=== PATIENT | female | born 1990 | race Hispanic/Latino ===

== ENCOUNTER 2017-10-24 21:31 | Emergency (ER) | payer OTHER, SELFPAY ==
[2017-10-24] MEDS ORDERED: CLINDAMYCIN HCL 150 MG CAP ONE (23:26)
[2017-10-24] MEDS ORDERED: PEN G BENZ LA 2.4 MU/4 ML SYRINGE IM ONE (23:26)
--- NOTE | 2017-10-24 23:27 | EDPHYS ---
Physician Documentation [facility] Name: Suellen Rivera Age: 27 yrs Sex: Female : 1990 Arrival Date: 10/24/2017 Time: 21:32 Bed 28 Private MD: ED Physician Igor Joseph HPI: 10/24 23:21 This 27 yrs old Female presents to ER via Ambulatory with complaints of Fever. radha 23:21 The patient reports fever, that was measured at 100 degrees Fahrenheit. Onset: The radha symptoms/episode began/occurred 3 day(s) ago. Modifying factors: there are no obvious modifying factors. Associated signs and symptoms: Pertinent positives: runny nose, sore throat, swelling. Severity of symptoms: At their worst the symptoms were moderate in the emergency department the symptoms are unchanged. 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 - Social history:: Smoking status: Patient/guardian denies using tobacco. - Ebola Screening: : Patient denies travel to an Ebola-affected area in the 21 days before illness onset. - Family history:: not pertinent. ROS: 23:21 Constitutional: Negative for fever, chills, and weight loss, Eyes: Negative for injury, radha pain, redness, and discharge, Neck: Negative for injury, pain, and swelling, Cardiovascular: Negative for chest pain, palpitations, and edema, Respiratory: Negative for shortness of breath, cough, wheezing, and pleuritic chest pain, Abdomen/GI: Negative for abdominal pain, nausea, vomiting, diarrhea, and constipation, Back: Negative for injury and pain, : Negative for injury, bleeding, discharge, and swelling, MS/Extremity: Negative for injury and deformity, Skin: Negative for injury, rash, and discoloration, Neuro: Negative for headache, weakness, numbness, tingling, and seizure, Psych: Negative for depression, anxiety, suicide ideation, homicidal ideation, and hallucinations, Allergy/Immunology: Negative for hives, rash, and allergies, Endocrine: Negative for neck swelling, polydipsia, polyuria, polyphagia, and marked weight changes, Hematologic/Lymphatic: Negative for swollen nodes, abnormal bleeding, and unusual bruising. 23:21 ENT: Positive for difficulty swallowing, sore throat. 23:21 Neck: Positive for swollen nodes, Negative for injury or acute deformity, mass, pain with movement, pain at rest, rash, stiffness, swelling. Exam: 23:23 Head/Face: Normocephalic, atraumatic. Eyes: Pupils equal round and reactive to light, radha extra-ocular motions intact. Lids and lashes normal. Conjunctiva and sclera are non-icteric and not injected. Cornea within normal limits. Periorbital areas with no swelling, redness, or edema. Neck: Trachea midline, no thyromegaly or masses palpated, and no cervical lymphadenopathy. Supple, full range of motion without nuchal rigidity, or vertebral point tenderness. No Meningismus. Chest/axilla: Normal chest wall appearance and motion. Nontender with no deformity. No lesions are appreciated. Cardiovascular: Regular rate and rhythm with a normal S1 and S2. No gallops, murmurs, or rubs. Normal PMI, no JVD. No pulse deficits. Respiratory: Lungs have equal breath sounds bilaterally, clear to auscultation and percussion. No rales, rhonchi or wheezes noted. No increased work of breathing, no retractions or nasal flaring. Abdomen/GI: Soft, non-tender, with normal bowel sounds. No distension or tympany. No guarding or rebound. No evidence of tenderness throughout. Back: No spinal tenderness. No costovertebral tenderness. Full range of motion. Pelvic Exam: Normal external genitalia. Speculum exam with closed cervical os, no discharge or bleeding noted. Bimanual exam with normal adnexa, no adnexal or cervical motion tenderness. Normal uterus. Female : Normal external genitalia. Skin: Warm, dry with normal turgor. Normal color with no rashes, no lesions, and no evidence of cellulitis. MS/ Extremity: Pulses equal, no cyanosis. Neurovascular intact. Full, normal range of motion. Neuro: Awake and alert, GCS 15, oriented to person, place, time, and situation. Cranial nerves II-XII grossly intact. Motor strength 5/5 in all extremities. Sensory grossly intact. Cerebellar exam normal. Normal gait. Psych: Awake, alert, with orientation to person, place and time. Behavior, mood, and affect are within normal limits. 23:23 Constitutional: The patient appears febrile. 23:23 ENT: Posterior pharynx: Tonsils: bilaterally enlarged, with erythema, Uvula: midline, edematous, erythema, swelling, that is mild, erythema, that is mild, that is moderate, exudate, that is mild, peritonsillar mass, is not appreciated. Vital Signs: 21:46 BP 117 / 82; Pulse 119; Resp 20; Temp 98.4(O); Pulse Ox 98% on R/A; Weight 111.13 kg aj1 (R); Height 5 ft. 4 in. (162.56 cm) (R); Pain 0/10; 23:31 BP 119 / 81; Pulse 98; Resp 16; Pulse Ox 100% on R/A; tl3 21:46 Body Mass Index 42.05 (111.13 kg, 162.56 cm) 1 MDM: 21:56 Patient medically screened. [facility] 23:27 Data reviewed: vital signs, nurses notes, lab test result(s). [facility] 10/24 22:06 Order name: Strep; Complete Time: 23:20 3 10/24 23:21 Order name: PO challenge; Complete Time: 23:21 [facility] Administered Medications: 23:30 Drug: Clindamycin 300 mg Route: PO; 3 23:48 Follow up: Response: No adverse reaction [facility] 23:31 Drug: Bicillin L-A 1.8 million units Route: IM; Site: left vastus lateralis; 3 23:48 Follow up: Response: No adverse reaction [facility] Disposition: 10/24/17 23:26 Discharged to Home. Impression: Fever, unspecified, Acute tonsillitis, Streptococcal tonsillitis. - Condition is Stable. - Discharge Instructions: Fever, Adult, Tonsillitis, Tonsillitis, [id number]. - Prescriptions for Clindamycin HCl 300 mg Oral Capsule - take 1 capsule by ORAL route every 6 hours for 7 days; 28 capsule. - Medication Reconciliation Form, Thank You Letter, Antibiotic Education, Prescription Opioid Use form. - Follow up: Private Physician; When: 2 - 3 days; Reason: Recheck today's complaints, Continuance of care, Re-evaluation by your physician. - Problem is new. - Symptoms have improved. Signatures: Dispatcher [employer] Avelina Watts RN RN aj1 Igor oJseph MD MD cha Lowrey, Tammy, RN RN tl3 Corrections: (The following items were deleted from the chart) 23:49 23:26 10/24/2017 23:26 Discharged to Home. Impression: Fever, unspecified; Acute tl3 tonsillitis; Streptococcal tonsillitis. Condition is Stable. Forms are Medication Reconciliation Form, Thank You Letter, Antibiotic Education, Prescription Opioid Use. Follow up: Private Physician; When: 2 - 3 days; Reason: Recheck today's complaints, Continuance of care, Re-evaluation by your physician. Problem is new. Symptoms have improved. radha
--- NOTE | 2017-10-24 23:27 | ER ---
Nurse's Notes [facility] Name: Suellen Rivera Age: 27 yrs Sex: Female : 1990 Arrival Date: 10/24/2017 Time: 21:32 Bed 28 Private MD: Diagnosis: Fever, unspecified;Acute tonsillitis;Streptococcal tonsillitis Presentation: 10/24 21:44 Presenting complaint: Patient states: sore throat, chills, fever, nausea since aj1 Saturday. Denies vomiting, diarrhea. Transition of care: patient was not received from another setting of care. Onset of symptoms was October 23, 2017. Risk Assessment: Do you want to hurt yourself or someone else? Patient reports no desire to harm self or others. Initial Sepsis Screen: Does the patient meet any 2 criteria? No. Patient's initial sepsis screen is negative. Does the patient have a suspected source of infection? No. Patient's initial sepsis screen is negative. Care prior to arrival: None. 21:44 Method Of Arrival: Ambulatory [facility] 21:44 Acuity: VIMAL 4 aj1 Triage Assessment: 21:46 General: Appears in no apparent distress. uncomfortable, Behavior is calm, cooperative, aj1 appropriate for age. Pain: Denies pain. EENT: Reports nasal congestion nasal discharge sore throat. 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 - Social history:: Smoking status: Patient/guardian denies using tobacco. - Ebola Screening: : Patient denies travel to an Ebola-affected area in the 21 days before illness onset. - Family history:: not pertinent. Screenin:00 Abuse screen: Denies threats or abuse. Nutritional screening: No deficits noted. tl3 Tuberculosis screening: No symptoms or risk factors identified. Fall Risk None identified. Assessment: 22:00 General: Appears in no apparent distress. uncomfortable, well groomed, well developed, tl3 well nourished, Behavior is calm, cooperative, appropriate for age. Pain: Complains of pain in sore throat. Neuro: No deficits noted. Level of Consciousness is awake, alert, obeys commands, Oriented to person, place, time, situation, Appropriate for age. Cardiovascular: Heart tones S1 S2 present Patient's skin is warm and dry. Respiratory: Airway is patent Respiratory effort is even, unlabored, Respiratory pattern is regular, symmetrical. GI: No signs and/or symptoms were reported involving the gastrointestinal system. : No signs and/or symptoms were reported regarding the genitourinary system. EENT: No signs and/or symptoms were reported regarding the EENT system. EENT: Reports difficulty swallowing since two days pain in throat when swallowing. Derm: No signs and/or symptoms reported regarding the dermatologic system. Musculoskeletal: No signs and/or symptoms reported regarding the musculoskeletal system. 23:31 Reassessment: Patient appears in no apparent distress at this time. No changes from tl3 previously documented assessment. Patient and/or family updated on plan of care and expected duration. Pain level reassessed. Patient is alert, oriented x 3, equal unlabored respirations, skin warm/dry/pink. pt awaiting shot time for discharge. Vital Signs: 21:46 BP 117 / 82; Pulse 119; Resp 20; Temp 98.4(O); Pulse Ox 98% on R/A; Weight 111.13 kg aj1 (R); Height 5 ft. 4 in. (162.56 cm) (R); Pain 0/10; 23:31 BP 119 / 81; Pulse 98; Resp 16; Pulse Ox 100% on R/A; tl3 21:46 Body Mass Index 42.05 (111.13 kg, 162.56 cm) aj1 ED Course: 21:32 Patient arrived in ED. am2 21:45 Triage completed. aj1 21:46 Arm band placed on. aj1 21:56 Igor Joseph MD is Attending Physician. radha 22:00 Patient has correct armband on for positive identification. Bed in low position. Call tl3 light in reach. Side rails up X 1. Adult w/ patient. 22:00 No provider procedures requiring assistance completed. Patient did not have IV access tl3 during this emergency room visit. 22:06 Hazel Pérez, RN is Primary Nurse. tl3 Administered Medications: 23:30 Drug: Clindamycin 300 mg Route: PO; tl3 23:48 Follow up: Response: No adverse reaction tl3 23:31 Drug: Bicillin L-A 1.8 million units Route: IM; Site: left vastus lateralis; tl3 23:48 Follow up: Response: No adverse reaction tl3 Outcome: 23:26 Discharge ordered by . radha 23:48 Discharged to home ambulatory. tl3 23:48 Condition: good 23:48 Discharge instructions given to patient, Instructed on discharge instructions, follow up and referral plans. medication usage, Demonstrated understanding of instructions, follow-up care, medications, Prescriptions given X 1. 23:49 Patient left the ED. tl3 Signatures: Avelina Zavala, RN RN aj1 Igor Joseph MD MD cha Moreno, Amanda am2 Lowrey, Tammy, HENRY RN tl3
[2017-10-25 00:36] VITALS: TEMP 98.4
[2017-10-25 00:39] VITALS: BP 119/81; O2SAT 100
== END 2017-10-24 23:49 | disposition home or self-care (01) ==
LOC: ER 21:31
DX: J03.00 Acute streptococcal tonsillitis, unspecified (principal)
CPT/HCPCS: 87081; 96372; 99283; J0561

== ENCOUNTER 2017-11-13 07:20 | Emergency (ER) | payer OTHER, SELFPAY ==
[2017-11-13 08:09] LABS: Absolute Lymphocytes (CBC) 3.7 K/uL (0.7-4.9); Absolute Monocytes 0.8 K/uL (0.1-1.3); Absolute Neutrophil 9.5 K/uL (1.8-8.0); Basophils % 0.3 % (0-1.3); Eosinophils % 0.2 % (0-4.4); Hematocrit 38.9 % (36.0-45.0); Lymphocytes % 26.4 % (15.3-44.8); MCH 27.2 pg (27.0-35.0); MCV 86.8 fL (80-100); MPV 9.2 fL (7.6-11.3); Monocytes % 5.8 % (3.3-12.3); RBC Red Blood Cell Count 4.49 M/uL (3.86-4.86)
[2017-11-13 08:11] LABS: Urine Bacteria <20 /HPF (<20); Urine Culture Reflex Order NOT NEEDED; Urine Mucus 1+ /HPF (NONE SEEN); Urine RBC <5 /HPF (NONE SEEN)
[2017-11-13 08:41] LABS: BUN Blood Urea Nitrogen 8 mg/dL (7-18); Bicarbonate 25 mmol/L (21-32); Glucose Level 110 mg/dL (74-106); HCG, Quantitative 2963 mIU/mL (1-3); Potassium 3.7 mmol/L (3.5-5.1); Sodium Level 137 mmol/L (136-145)
[2017-11-13 09:37] LABS: Urine Blood NEGATIVE (NEG); Urine Glucose NEGATIVE (NEG); Urine Protein NEGATIVE (NEG); Urine Specific Gravity 1.025 (1.005-1.030); Urine pH 5.5 (5.0-7.0)
--- NOTE | 2017-11-13 10:06 | EDPHYS ---
Physician Documentation [facility] Name: Suellen Rivera Age: 27 yrs Sex: Female : 1990 Arrival Date: 11/13/2017 Time: 07:22 Bed 15 Private MD: None, None ED Physician Duane Diaz HPI: 11/13 07:36 This 27 yrs old Female presents to ER via Ambulatory with complaints of rn Abdominal Pain - 6wk . 07:36 The patient presents to the emergency department with abdominal pain, of the suprapubic rn area. The estimated gestational age is 6 weeks. course: care: none, Leakage of Fluid: none appreciated, Ultrasound: the patient has not had an ultrasound, Risk/complications:. Previous pregnancies: in previous pregnancies patient has had. Associated signs and symptoms: Pertinent positives: abdominal pain, frequency, Pertinent negatives: fever, vaginal bleeding, vaginal discharge. The patient has experienced similar episodes in the past. Reports LMP 6-7 weeks ago, presents with lower abd pain, sharp, intermittent, + increased urinary frequency, no trauma, no bleeding/discharge, has had 2 previous miscarriages so wanted to be safe. . 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 - Social history:: Smoking status: Patient/guardian denies using tobacco. - Ebola Screening: : Patient denies exposure to infectious person Patient denies travel to an Ebola-affected area in the 21 days before illness onset. - Family history:: not pertinent. - Hospitalizations: : No recent hospitalization is reported. ROS: 07:36 Constitutional: Negative for fever, chills, and weight loss, Eyes: Negative for injury, rn pain, redness, and discharge, Neck: Negative for injury, pain, and swelling, Cardiovascular: Negative for chest pain, palpitations, and edema, Respiratory: Negative for shortness of breath, cough, wheezing, and pleuritic chest pain, Abdomen/GI: + lower abd pain Back: Negative for injury and pain, : Negative for injury, bleeding, discharge, and swelling, MS/Extremity: Negative for injury and deformity, Skin: Negative for injury, rash, and discoloration, Neuro: Negative for headache, weakness, numbness, tingling, and seizure. Exam: 07:36 Constitutional: This is a well developed, well nourished patient who is awake, alert, rn and in no acute distress. Head/Face: Normocephalic, atraumatic. Eyes: Pupils equal round and reactive to light, extra-ocular motions intact. Lids and lashes normal. Conjunctiva and sclera are non-icteric and not injected. Cornea within normal limits. Periorbital areas with no swelling, redness, or edema. ENT: MMM Abdomen/GI: Soft, non-tender. No distension or tympany. No guarding or rebound. Mild suprapubic tenderness. Skin: Warm, dry with normal turgor. Normal color with no rashes, no lesions, and no evidence of cellulitis. MS/ Extremity: Pulses equal, no cyanosis. Neurovascular intact. Full, normal range of motion. Equal circumference. Neuro: Awake and alert, GCS 15, oriented to person, place, time, and situation.Motor strength 5/5 in all extremities. Sensory grossly intact. Cerebellar exam normal. Normal gait. Vital Signs: 07:35 BP 129 / 86; Pulse 88; Resp 14; Temp 98.3(O); Pulse Ox 100% on R/A; Weight 111.13 kg; ss Height 5 ft. 4 in. (162.56 cm); Pain 8/10; 09:00 BP 118 / 78; Pulse 84; Resp 18; Pulse Ox 99% on R/A; ph 10:00 BP 122 / 76; Pulse 85; Resp 18; Temp 98.0; Pulse Ox 99% on R/A; ph 07:35 Body Mass Index 42.05 (111.13 kg, 162.56 cm) ss MDM: 07:26 Patient medically screened. rn 10:03 ED course: Consulted with Dr. Colon \T\ 1002, states difficult to tell at this point if rn ecotpic vs viable given presentation and data, does not recommend methotrexate or surgery, recommends f/u in 48 hours for repeat beta and to return if worsens. No peritoneal signs at this point. . 10:11 ED course: Pt states pain almost resolved. Has f/u appt with her private OB tomorrow. . rn 10:12 Differential diagnosis: ectopic . Data reviewed: vital signs, nurses notes, steel burner test result(s), radiologic studies, ultrasound, and as a result, I will discharge patient. Counseling: I had a detailed discussion with the patient and/or guardian regarding: the historical points, exam findings, and any diagnostic results supporting the discharge/admit diagnosis, lab results, radiology results, the need for outpatient follow up, to return to the emergency department if symptoms worsen or persist or if there are any questions or concerns that arise at home. Response to treatment: the patient's symptoms have markedly improved after treatment. 11/13 07:35 Order name: Quantitative Hcg; Complete Time: 08:46 rn 11/13 07:35 Order name: Abo/rh Typing; Complete Time: 08:21 rn 11/13 07:35 Order name: Basic Metabolic Panel; Complete Time: 08:46 rn 11/13 07:35 Order name: CBC with Diff; Complete Time: 08:21 rn 11/13 07:35 Order name: Urine Microscopic Only; Complete Time: 08:21 rn 11/13 07:38 Order name: Urine Dipstick--Ancillary (enter results); Complete Time: 09:54 em1 11/13 07:35 Order name: IV Saline Lock; Complete Time: 07:51 rn 11/13 07:35 Order name: Labs collected and sent; Complete Time: 07:51 rn 11/13 07:35 Order name: NPO; Complete Time: 07:53 rn 11/13 07:35 Order name: Urine Dipstick-Ancillary (obtain specimen); Complete Time: 07:39 rn 11/13 07:35 Order name: Urine Test (obtain specimen); Complete Time: 07:39 rn 11/13 07:35 Order name: US Transvaginal Ob; Complete Time: 10:19 rn 11/13 07:38 Order name: Urine --Ancillary (enter results); Complete Time: 09:54 em1 Administered Medications: No medications were administered Disposition: 11/13/17 10:05 Discharged to Home. Impression: Threatened , Abdominal and pelvic pain, Possible ectopic . - Condition is Stable. - Discharge Instructions: Ectopic , Threatened Miscarriage, Pelvic Rest. - Medication Reconciliation Form, Thank You Letter, Antibiotic Education, Prescription Opioid Use form. - Follow up: Private Physician; When: 48 Hours; Reason: Repeat Beta-HCG (48 Hours). - Problem is new. - Symptoms have improved. Signatures: Dispatcher [employer] EDMS Duane Diaz MD MD rn Martinez, Eric em1 Paty Figueroa RN RN ss Hall, Patricia, RN RN ph Corrections: (The following items were deleted from the chart) 07:38 07:38 Urine Dipstick-Ancillary ordered. em1 em1 07:39 07:38 Urine Test ordered. em1 em1 08:54 07:36 Constitutional: This is a well developed, well nourished patient who is awake, rn alert, and in no acute distress. Head/Face: Normocephalic, atraumatic. Eyes: Pupils equal round and reactive to light, extra-ocular motions intact. Lids and lashes normal. Conjunctiva and sclera are non-icteric and not injected. Cornea within normal limits. Periorbital areas with no swelling, redness, or edema. ENT: MMM Abdomen/GI: Soft, non-tender, with normal bowel sounds. No distension or tympany. No guarding or rebound. No evidence of tenderness throughout. Skin: Warm, dry with normal turgor. Normal color with no rashes, no lesions, and no evidence of cellulitis. MS/ Extremity: Pulses equal, no cyanosis. Neurovascular intact. Full, normal range of motion. Equal circumference. Neuro: Awake and alert, GCS 15, oriented to person, place, time, and situation.Motor strength 5/5 in all extremities. Sensory grossly intact. Cerebellar exam normal. Normal gait. rn 10:05 10:05 11/13/2017 10:05 Discharged to Home. Impression: Threatened ; Abdominal rn and pelvic pain. Condition is Stable. Forms are Medication Reconciliation Form, Thank You Letter, Antibiotic Education, Prescription Opioid Use. Follow up: Private Physician; When: 48 Hours; Reason: Repeat Beta-HCG (48 Hours). Problem is new. Symptoms have improved. rn 10:27 10:05 11/13/2017 10:05 Discharged to Home. Impression: Threatened ; Abdominal ph and pelvic pain; Possible ectopic . Condition is Stable. Forms are Medication Reconciliation Form, Thank You Letter, Antibiotic Education, Prescription Opioid Use. Follow up: Private Physician; When: 48 Hours; Reason: Repeat Beta-HCG (48 Hours). Problem is new. Symptoms have improved. rn
--- NOTE | 2017-11-13 10:06 | ER ---
Nurse's Notes [facility] Name: Suellen Rivera Age: 27 yrs Sex: Female : 1990 Arrival Date: 11/13/2017 Time: 07:22 Bed 15 Private MD: None, None Diagnosis: Threatened ;Abdominal and pelvic pain;Possible ectopic Presentation: 11/13 07:33 Presenting complaint: Patient states: sharp, lower abd pain that began at 0430 this morning. Pt reports she is approx 6-7 weeks . Denies vaginal bleeding. Transition of care: patient was not received from another setting of care. Onset of symptoms was November 13, 2017. Risk Assessment: Do you want to hurt yourself or someone else? Patient reports no desire to harm self or others. Initial Sepsis Screen: Does the patient meet any 2 criteria? No. Patient's initial sepsis screen is negative. Does the patient have a suspected source of infection? No. Patient's initial sepsis screen is negative. Care prior to arrival: None. 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 - Social history:: Smoking status: Patient/guardian denies using tobacco. - Ebola Screening: : Patient denies exposure to infectious person Patient denies travel to an Ebola-affected area in the 21 days before illness onset. - Family history:: not pertinent. - Hospitalizations: : No recent hospitalization is reported. Screenin:37 Abuse screen: Denies threats or abuse. Denies injuries from another. Nutritional ph screening: No deficits noted. Tuberculosis screening: No symptoms or risk factors identified. Fall Risk None identified. Assessment: 07:38 General: Appears in no apparent distress. uncomfortable, obese, well groomed, Behavior ph is calm, cooperative, appropriate for age. Pain: Complains of pain in abdomen and suprapubic area. Neuro: Level of Consciousness is awake, alert, obeys commands, Oriented to person, place, time, situation. Cardiovascular: Capillary refill < 3 seconds Patient's skin is warm and dry. Respiratory: Airway is patent Respiratory effort is even, unlabored, Respiratory pattern is regular, symmetrical. GI: Abdomen is non-distended, obese, Bowel sounds present X 4 quads. Abd is soft X 4 quads Abdomen is tender to palpation in suprapubic area Reports lower abdominal pain, Patient currently denies diarrhea, nausea, vomiting. : Reports pain in suprapubic area urinary frequency, Denies burning with urination, vaginal bleeding. Derm: Skin is intact, is healthy with good turgor, Skin is pink, warm \T\ dry. Musculoskeletal: Circulation, motion, and sensation intact. Range of motion: intact in all extremities. 09:06 Reassessment: Patient appears in no apparent distress at this time. Patient and/or ph family updated on plan of care and expected duration. Pain level reassessed. Patient is alert, oriented x 3, equal unlabored respirations, skin warm/dry/pink. Pt taken for US. 10:08 Reassessment: Patient appears in no apparent distress at this time. Patient and/or ph family updated on plan of care and expected duration. Pain level reassessed. Patient is alert, oriented x 3, equal unlabored respirations, skin warm/dry/pink. ERP at bedside to speak w/ pt and SO about results, pt awaiting d/c. 10:26 Reassessment: Patient appears in no apparent distress at this time. Patient is alert, ph oriented x 3, equal unlabored respirations, skin warm/dry/pink. Pt instructed to follow up w/ OB in 48 hrs for repeat HCG level, d/c home w/ SO. Vital Signs: 07:35 BP 129 / 86; Pulse 88; Resp 14; Temp 98.3(O); Pulse Ox 100% on R/A; Weight 111.13 kg; ss Height 5 ft. 4 in. (162.56 cm); Pain 8/10; 09:00 BP 118 / 78; Pulse 84; Resp 18; Pulse Ox 99% on R/A; ph 10:00 BP 122 / 76; Pulse 85; Resp 18; Temp 98.0; Pulse Ox 99% on R/A; ph 07:35 Body Mass Index 42.05 (111.13 kg, 162.56 cm) ED Course: 07:22 Patient arrived in ED. sb2 07:22 None, None is Private Physician. sb2 07:26 Duane Diaz MD is Attending Physician. rn 07:34 Triage completed. ss 07:35 Arm band placed on right wrist. 07:37 María Georges, RN is Primary Nurse. ph 07:40 Patient has correct armband on for positive identification. Placed in gown. Bed in low ph position. Call light in reach. Side rails up X 1. Pulse ox on. NIBP on. Warm blanket given. 07:46 Initial lab(s) drawn, by ED staff, sent to lab. Inserted saline lock: 20 gauge in left ph antecubital area, using aseptic technique. Blood collected. 09:30 Patient taken to ultrasound. via wheelchair. lc3 09:31 Ultrasound completed. Patient tolerated well. Patient moved back from ultrasound. lc3 09:32 US Transvaginal Ob In Process Unspecified. EDMS 10:14 No provider procedures requiring assistance completed. IV discontinued, intact, ph bleeding controlled, No redness/swelling at site. Pressure dressing applied. Administered Medications: No medications were administered Outcome: 10:05 Discharge ordered by . rn 10:26 Discharged to home ambulatory, with significant other. ph 10:26 Condition: good 10:26 Discharge instructions given to patient, significant other, Instructed on discharge instructions, follow up and referral plans. Demonstrated understanding of instructions, follow-up care. 10:27 Patient left the ED. ph Signatures: Dispatcher [employer] EDMS Duane Diaz MD MD rn Smirch, Shelby, RN RN María Georges RN RN Cezar De La Cruz [facility] Lexy Gomez sb2
--- NOTE | 2017-11-13 10:16 | RAD REPORT ---
EXAM DESCRIPTION: US - Transvaginal OB - 11/13/2017 9:32 am CLINICAL HISTORY: , pelvic pain, history of miscarriage, beta HCG 2963 Preliminary findings provided at the time of the study. COMPARISON: Pelvic ultrasound September 2006 TECHNIQUE: Endovaginal pelvic sonography was performed. Doppler evaluation of the ovaries performed. FINDINGS: Endometrial stripe is 8 mm. No gestational sac or sac remnant identified. No mass, hematom a or other endometrial finding. No myometrial mass identified. Uterus is normal in size. Uterus measu res 8.9 cm maximum dimension. A 3.0 centimeter left ovarian cyst is present. Right ovary was not well defined. No adnexal masses id entified suspicious for ectopic . Urinary bladder is contracted. Echogenic fluid in the cul- de-sac could be fluid or even possibly blood. IMPRESSION: No intrauterine gestational sac or sac remnant. No hematoma or endometrial abnormality. A 3 centimeter left ovarian cyst is present. No adnexal mass to suspect ectopic . Fluid in the cul-de-sac is heterogeneous. This may be probably echogenic but otherwise benign fluid. Hemorrhagic material cannot be excluded. Given the positive study, follow-up sonography would be suggested if there is are rising be ta HCG values.
[2017-11-13 10:31] VITALS: BP 129/86; TEMP 98.3; O2SAT 100
== END 2017-11-13 10:27 | disposition home or self-care (01) ==
LOC: ER 07:20
DX: O20.0 Threatened abortion (principal); R10.9 Unspecified abdominal pain; R10.2 Pelvic and perineal pain
CPT/HCPCS: 36415; 76817; 80048; 81003; 81015; 81025; 84702; 85025; 86900; 86901; 99284

== ENCOUNTER 2018-11-13 22:50 | Emergency (ER) | payer OTHER, SELFPAY ==
[2018-11-13 23:50] LABS: Urine Blood NEGATIVE (NEG); Urine Glucose NEGATIVE (NEG); Urine Protein NEGATIVE (NEG); Urine Specific Gravity 1.025 (1.005-1.030)
[2018-11-13 23:51] LABS: Absolute Lymphocytes (CBC) 4.3 K/uL (0.7-4.9); Basophils % 0.4 % (0-1.3); Eosinophils % 0.5 % (0-4.4); Hematocrit 38.8 % (36.0-45.0); MPV 9.2 fL (7.6-11.3); Monocytes % 4.9 % (3.3-12.3); RBC Red Blood Cell Count 4.47 M/uL (3.86-4.86)
[2018-11-14 00:10] LABS: BUN Blood Urea Nitrogen 8 mg/dL (7-18); Bicarbonate 26 mmol/L (21-32); Glucose Level 86 mg/dL (74-106); Potassium 3.6 mmol/L (3.5-5.1); Sodium Level 140 mmol/L (136-145)
[2018-11-14 00:24] LABS: HCG, Quantitative 35636 mIU/mL (1-3)
--- NOTE | 2018-11-14 03:11 | EDPHYS ---
Physician Documentation [facility] Name: Suellen Rivera Age: 28 yrs Sex: Female : 1990 Arrival Date: 11/13/2018 Time: 22:55 Bed 16 Private MD: ED Physician Russ Arciniega HPI: 11/13 23:25 This 28 yrs old Female presents to ER via Ambulatory with complaints of cp Abdominal Pain, 7-10 wkx preg. 23:25 The patient presents with abdominal pain in the lower abdomen. cp 23:25 Onset: The symptoms/episode began/occurred today, at 19:00. cp 23:25 Associated signs and symptoms: Pertinent negatives: dysuria, fever, vaginal bleeding or cp vaginal discharge. 23:25 The symptoms are described as crampy. cp 23:25 Severity of pain: in the emergency department the pain is unchanged despite home cp interventions. 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 - Social history:: Smoking status: Patient/guardian denies using tobacco. - Ebola Screening: : No symptoms or risks identified at this time. ROS: 23:35 Constitutional: Negative for body aches, chills, fever, poor PO intake. cp 23:35 Eyes: Negative for injury, pain, redness, and discharge. cp 23:35 ENT: Negative for drainage from ear(s), ear pain, sore throat, difficulty swallowing, difficulty handling secretions. 23:35 Cardiovascular: Negative for chest pain, edema, palpitations. 23:35 Respiratory: Negative for cough, shortness of breath, wheezing. 23:35 Abdomen/GI: Positive for abdominal pain, vomiting, Negative for diarrhea, constipation, black/tarry stool, rectal bleeding. 23:35 : Negative for urinary symptoms, vaginal bleeding, vaginal discharge. 23:35 Skin: Negative for rash. 23:35 All other systems are negative. Exam: 23:45 Head/Face: Normocephalic, atraumatic. cp 23:45 Constitutional: The patient appears in no acute distress, alert, awake, non-toxic, well developed, well nourished. 23:45 Eyes: Periorbital structures: appear normal, Conjunctiva: normal, no exudate, no injection, Sclera: no appreciated abnormality, Lids and lashes: appear normal, bilaterally. 23:45 ENT: External ear(s): are unremarkable, Nose: is normal, Mouth: Lips: moist, Oral mucosa: pink and intact, moist, Posterior pharynx: is normal, airway is patent, no erythema, no exudate. 23:45 Chest/axilla: Inspection: normal, Palpation: is normal, no crepitus, no tenderness. 23:45 Cardiovascular: Rate: normal, Rhythm: regular. 23:45 Respiratory: the patient does not display signs of respiratory distress, Respirations: normal, no use of accessory muscles, no retractions, no splinting, no tachypnea, labored breathing, is not present, Breath sounds: are clear throughout, no decreased breath sounds, no stridor, no wheezing. 23:45 Abdomen/GI: Inspection: abdomen appears normal, Bowel sounds: active, all quadrants, Palpation: soft, in all quadrants, mild abdominal tenderness, in the suprapubic area, right lower quadrant and left lower quadrant, rebound tenderness, is not appreciated, involuntary guarding, is not appreciated. 23:45 Back: pain, is absent, ROM is normal. Vital Signs: 23:23 BP 111 / 59; Pulse 88; Resp 18; Temp 98.6(O); Pulse Ox 100% on R/A; Weight 104.33 kg; lp1 Height 5 ft. 3 in. (160.02 cm); Pain 7/10; 0705 00:41 BP 129 / 78; Pulse 80; Resp 16; Pulse Ox 100% on R/A; lp1 02:58 BP 127 / 89; Pulse 78; Resp 18; Pulse Ox 100% on R/A; Pain 0/10; lp1 11/13 23:23 Body Mass Index 40.74 (104.33 kg, 160.02 cm) lp1 MDM: 11/13 23:14 Patient medically screened. cp 11/14 03:08 Data reviewed: vital signs, nurses notes, lab test result(s), radiologic studies, cp ultrasound. 03:08 Differential diagnosis: Ectopic , Ovarian Torsion, Tubal Ovarian Abcess, cp urinary tract infection, threatened . Counseling: I had a detailed discussion with the patient and/or guardian regarding: the historical points, exam findings, and any diagnostic results supporting the discharge/admit diagnosis, lab results, radiology results, the need for outpatient follow up, an OB/Gyne specialist, to return to the emergency department if symptoms worsen or persist or if there are any questions or concerns that arise at home. ED course: VSS. US report from [facility] shows viable IUP. 11/13 23:21 Order name: Quantitative Hcg 11/13 23:21 Order name: Abo/rh Typing 11/13 23:21 Order name: Basic Metabolic Panel; Complete Time: 00:40 cp 11/13 23:21 Order name: CBC with Diff; Complete Time: 00:11 cp 11/14 00:11 Interpretation: Normal except: WBC 12.2. cp 11/13 23:23 Order name: HCG, Quantitative; Complete Time: 00:40 EDMS 11/14 03:01 Interpretation: Abnormal: HCGQ 98483. cp 11/13 23:23 Order name: ABO/RH typing; Complete Time: 00:40 EDMS 11/14 03:02 Interpretation: Reviewed. 11/13 23:21 Order name: Urine Test (obtain specimen); Complete Time: 23:40 cp 11/13 23:21 Order name: IV Saline Lock; Complete Time: 23:40 cp 11/13 23:21 Order name: Labs collected and sent; Complete Time: 23:40 cp 11/13 23:21 Order name: NPO; Complete Time: 23:40 cp 11/13 23:21 Order name: Urine Dipstick-Ancillary (obtain specimen); Complete Time: 23:40 cp 11/13 23:30 Order name: Urine Dipstick--Ancillary (enter results); Complete Time: 23:55 ar5 11/14 03:02 Interpretation: Reviewed. cp 11/13 23:30 Order name: Urine --Ancillary (enter results); Complete Time: 23:55 ar5 11/13 23:55 Interpretation: Reviewed. cp 11/14 00:42 Order name: Transvaginal Ob cp Administered Medications: No medications were administered Disposition: 11/14/18 03:09 Discharged to Home. Impression: related conditions, unspecified, first trimester, Lower abdominal pain, unspecified. - Condition is Stable. - Discharge Instructions: Abdominal Pain During , First Trimester of , Pelvic Rest. - Prescriptions for Diclegis 10- 10 mg Oral tablet,delayed release (DR/EC) - take 1 tablet by ORAL route 3-4 times daily As needed 1 tablet before meals and 2 tablets at bedtime; 60 tablet. - Medication Reconciliation Form, Thank You Letter, Antibiotic Education, Prescription Opioid Use form. - Follow up: Private Physician; When: 1 week; Reason: Recheck today's complaints. - Problem is new. - Symptoms have improved. Addendum: 11/17/2018 19:22 Co-signature as Attending Physician, Russ Arciniega MD. g s Signatures: Dispatcher [employer] EDMS Jada Lebron RN RN lp1 Igor Steven PA PA cp Russ Arciniega MD MD Corrections: (The following items were deleted from the chart) 11/14 03:23 03:09 11/14/2018 03:09 Discharged to Home. Impression: related conditions, lp1 unspecified, first trimester; Lower abdominal pain, unspecified. Condition is Stable. Forms are Medication Reconciliation Form, Thank You Letter, Antibiotic Education, Prescription Opioid Use. Follow up: Private Physician; When: 1 week; Reason: Recheck today's complaints. Problem is new. Symptoms have improved. cp
--- NOTE | 2018-11-14 03:11 | ER ---
Nurse's Notes [facility] Name: Suellen Rivera Age: 28 yrs Sex: Female : 1990 Arrival Date: 11/13/2018 Time: 22:55 Bed 16 Private MD: Diagnosis: related conditions, unspecified, first trimester;Lower abdominal pain, unspecified Presentation: 11/13 23:21 Presenting complaint: Patient states: Pelvic pain since 1900 tonight; Denies any lp1 vaginal discharge, urinary symptoms, N/V. Transition of care: patient was not received from another setting of care. Onset of symptoms was November 13, 2018 at 19:00. Risk Assessment: Do you want to hurt yourself or someone else? Patient reports no desire to harm self or others. Initial Sepsis Screen: Does the patient meet any 2 criteria? No. Patient's initial sepsis screen is negative. Does the patient have a suspected source of infection? No. Patient's initial sepsis screen is negative. Care prior to arrival: None. 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 - Social history:: Smoking status: Patient/guardian denies using tobacco. - Ebola Screening: : No symptoms or risks identified at this time. Screenin:26 Abuse screen: Denies threats or abuse. Denies injuries from another. Nutritional lp1 screening: No deficits noted. Tuberculosis screening: No symptoms or risk factors identified. Fall Risk None identified. Assessment: 23:25 General: Appears in no apparent distress. Behavior is calm, cooperative, appropriate lp1 for age. Pain: Complains of pain in suprapubic area Pain currently is 7 out of 10 on a pain scale. Quality of pain is described as crampy, Pain began 4 hours ago. Neuro: No deficits noted. Cardiovascular: No deficits noted. Respiratory: Respiratory effort is even, unlabored. GI: Abdomen is non-distended, Bowel sounds present X 4 quads. Abdomen is tender to palpation in suprapubic area. : Reports pain in suprapubic area Denies burning with urination, vaginal bleeding. EENT: No signs and/or symptoms were reported regarding the EENT system. Derm: Skin is pink, warm \T\ dry. Musculoskeletal: Circulation, motion, and sensation intact. 11/14 00:41 Reassessment: Patient appears in no apparent distress at this time. Patient is alert, lp1 oriented x 3, equal unlabored respirations, skin warm/dry/pink. 01:52 Reassessment: Patient appears in no apparent distress at this time. Patient aware of lp1 waiting for ultrasound. 03:00 Reassessment: Patient appears in no apparent distress at this time. Patient is alert, lp1 oriented x 3, equal unlabored respirations, skin warm/dry/pink. Patient denies pain at this time. Patient states feeling better. Patient states symptoms have improved. Vital Signs: 11/13 23:23 BP 111 / 59; Pulse 88; Resp 18; Temp 98.6(O); Pulse Ox 100% on R/A; Weight 104.33 kg; lp1 Height 5 ft. 3 in. (160.02 cm); Pain 7/10; 11/14 00:41 BP 129 / 78; Pulse 80; Resp 16; Pulse Ox 100% on R/A; lp1 02:58 BP 127 / 89; Pulse 78; Resp 18; Pulse Ox 100% on R/A; Pain 0/10; lp1 11/13 23:23 Body Mass Index 40.74 (104.33 kg, 160.02 cm) lp1 ED Course: 11/13 22:55 Patient arrived in ED. es 23:07 Igor Steven PA is PHCP. cp 23:08 Russ Arciniega MD is Attending Physician. cp 23:20 Jada Lebron, HENRY is Primary Nurse. lp1 23:23 Triage completed. lp1 23:24 Arm band placed on. lp1 23:29 Patient has correct armband on for positive identification. lp1 11/14 00:42 No provider procedures requiring assistance completed. lp1 02:47 US Transvaginal Ob In Process Unspecified. EDMS 03:22 IV discontinued, No redness/swelling at site. Pressure dressing applied. lp1 Administered Medications: No medications were administered Outcome: 03:09 Discharge ordered by MD. cp 03:23 Discharged to home ambulatory, with significant other. lp1 03:23 Condition: good 03:23 Discharge instructions given to patient, Instructed on discharge instructions, follow up and referral plans. medication usage, Demonstrated understanding of instructions, follow-up care, medications, Prescriptions given X 1. 03:23 Patient left the ED. lp1 Signatures: Dispatcher [employer] Eri Malik Laura, RN RN lp1 Igor Steven PA PA cp
[2018-11-14 04:00] VITALS: TEMP 98.6; O2SAT 100
[2018-11-14 04:03] VITALS: BP 127/89
--- NOTE | 2018-11-14 08:03 | RAD REPORT ---
EXAM DESCRIPTION: US - Transvaginal OB - 11/14/2018 2:47 am CLINICAL HISTORY: with pelvic pain COMPARISON: None. FINDINGS: The uterus measures 8 x 5 x 7 with 147 centimeters. A normal appearing gestational sac is present within the endometrium. Within this is a yolk sac and pole with a crown-rump length 0. 8 centimeters. Cardiac activity 147 beats per minute Right ovary normal in size and echotexture. Left ovary was not seen. An adnexal mass is not noted. No significant free fluid is seen. IMPRESSION: Single live intrauterine with an estimated gestational age 6 weeks 5 days JOSELITO 07/05/2019 the
== END 2018-11-14 03:23 | disposition home or self-care (01) ==
LOC: ER 22:50
DX: O26.891 Other specified pregnancy related conditions, first trimester (principal); R10.30 Lower abdominal pain, unspecified; Z3A.10 10 weeks gestation of pregnancy
CPT/HCPCS: 36415; 76817; 80048; 81003; 81025; 84702; 85025; 86900; 86901; 99283

== ENCOUNTER 2019-06-29 04:15 | Inpatient (IN) | payer OTHER ==
[2019-06-29] MEDS ORDERED: PROMETHAZINE INJ 25 MG/ML AMP IM PRN (04:49)
[2019-06-29] MEDS ORDERED: Ringers Lactate 1,000 ML IV PRN (04:49)
[2019-06-29] MEDS ORDERED: CARBOPROST TROME 250 MCG/ML IM PRN (04:49)
[2019-06-29] MEDS ORDERED: METHYLERGONOVINE 0.2MG/ML AMP IM PRN (04:49)
[2019-06-29] MEDS ORDERED: BUTORPHANOL 1 MG/ML INJ IV PRN (04:49)
[2019-06-29] MEDS ORDERED: OXYTOCIN/LR 20 UNIT/1,000 ML BAG IV SCH ×2 (05:00→16:00)
[2019-06-29] MEDS ORDERED: Ringers Lactate 1,000 ML IV SCH (05:00)
[2019-06-29 05:17] LABS: Absolute Lymphocytes (CBC) 4.4 K/uL (0.7-4.9); Basophils % 0.2 % (0-1.3); Hematocrit 33.5 % (36.0-45.0); Lymphocytes % 24.8 % (15.3-44.8); MPV 9.3 fL (7.6-11.3); RBC Red Blood Cell Count 4.12 M/uL (3.86-4.86)
[2019-06-29 05:18] LABS: Urine Appearance CLOUDY; Urine Bilirubin NEGATIVE (NEG); Urine Blood NEGATIVE (NEG); Urine Color YELLOW; Urine Glucose NEGATIVE (NEG); Urine Protein NEGATIVE (NEG); Urine Specific Gravity 1.025 (1.005-1.030)
[2019-06-29 05:24] LABS: Urine Microscopic Reflex ORDER UMIC
[2019-06-29 05:47] LABS: Urine Bacteria 20-50 /HPF (<20); Urine Culture Reflex Order REFLEXED; Urine Mucus SLIGHT /HPF (NONE SEEN); Urine RBC <5 /HPF (NONE SEEN)
[2019-06-29 05:48] VITALS: BMI 47.8
--- NOTE | 2019-06-29 07:53 | PREOPHP ---
Date of Admission: 06/29/2019 28-year-old 7, para 3, 39 weeks 1 day, Rh positive, immune to Rubella. Negative beta strep s creen. Robert regularly. FHT is normal reactive. White count was slightly elevated on admissi on but patient has no signs of infection whatsoever. We will monitor. She is 3 cm, 50%, baby is sti ll though at -2 station. We will wait for the baby descends somewhat more before we attempt membrane rupture. She knows the membranes rupture spontaneously, to let the nurses know immediately. Full l abor talk given. Anticipate delivery sometime later today. AKUA/CAYLA Voice ID: [id number]
[2019-06-29] MEDS ORDERED: BISACODYL 10 MG RECTAL SUPP RECT PRN (15:24)
[2019-06-29] MEDS ORDERED: ACETAMINOPHEN 500 MG TAB PO PRN (15:24)
[2019-06-29] MEDS ORDERED: METHYLERGONOVINE 0.2 MG TAB PO PRN (15:24)
[2019-06-29] MEDS ORDERED: Oxycodone HCl/Acetaminophen 1 TAB TAB PO PRN ×2 (15:24)
[2019-06-29] MEDS ORDERED: DIPHENHYDRAMINE 25 MG TAB/CAP PO PRN (15:24)
[2019-06-29] MEDS ORDERED: DOCUSATE NA/SENNA CONC 1 TAB PO PRN (15:24)
--- NOTE | 2019-06-29 21:56 | OP ---
Surgeon: Milan Louie MD History Of Present Illness: This is a 28-year-old 7, para 3 at 39 weeks 1 day. Rupture of m embranes, at 3.5 cm, clear fluid. Patient received Stadol 1 mg x2, Phenergan 25 mg IM x1. Otherwise use Lamaze breathing techniques. Second stage of 15 to 20 minutes. Spontaneous vaginal delivery of a 7 pounds 8-ounce female. Apgars 9 and 9. No episiotomy. No laceration. Schultze delivery of th e placenta, which was inspected and noted to be intact and normal. Estimated blood loss 250 cc or le ss. Rh positive, immune to Rubella. Negative beta strep screen. Patient tolerated all procedures w ell. Final Diagnoses: Term intrauterine 39 weeks 1 day, vaginal delivery. AKUA/CAYLA Voice ID: [id number] Report ID: [id number]
[2019-06-29 22:59] LABS: RPR (Rapid Plasma Reagin) NON-REACT (NON-REACT)
[2019-06-30] MEDS: IBUPROFEN 600 MG TAB PO PRN ×2 (00:15→08:52)
--- NOTE | 2019-06-30 07:20 | PN ---
Patient is now 3-1/2, 80 to 90% effaced, vertex, -1 station. Rupture of membranes, clear fluid. Sca lp electrode placed. Anticipate more rapid progress. AKUA/CAYLA Voice ID: [id number] Report ID: [id number]
[2019-06-30] MEDS ORDERED: Tdap (Diph,Pertuss(Acell),Tet Vac) 0.5 ML SYR IMVAC ONE (17:40)
[2019-06-30 17:47] VITALS: BP 115/63; TEMP 97.7
[2019-07-02 05:40] LABS: HBsAG Nonreactive (Nonreactive)
== END 2019-06-30 18:15 | disposition home or self-care (01) | DRG 807 ==
LOC: 2ND-WC 04:15
PROVIDERS: ADMIT Specialist; ATTEND Specialist
PROC: 10E0XZZ Delivery of Products of Conception, External Approach (ICD-10-PCS; principal; 2019-06-29)
PROC: 10907ZC Drainage of Amniotic Fluid, Therapeutic from Products of Conception, Via Natural or Artificial Opening (ICD-10-PCS; 2019-06-29)
PROC: 10H073Z Insertion of Monitoring Electrode into Products of Conception, Via Natural or Artificial Opening (ICD-10-PCS; 2019-06-29)
PROC: 4A1H7CZ Monitoring of Products of Conception, Cardiac Rate, Via Natural or Artificial Opening (ICD-10-PCS; 2019-06-29)
DX: O80 Encounter for full-term uncomplicated delivery (principal); Z37.0 Single live birth; Z3A.39 39 weeks gestation of pregnancy
CPT/HCPCS: 36415; 81003; 81015; 85025; 86592; 86850; 86900; 86901; 87086; 87088; 87340; 90471; 90715; J0595; J2210; J2550; J2590; J7120

== ENCOUNTER 2020-07-02 18:24 | Emergency (ER) | payer OTHER ==
[2020-07-02] MEDS ORDERED: NA CHLORIDE 0.9% 1,000 ML ONE ×2 (19:12→19:51)
[2020-07-02 19:15] LABS: BUN Blood Urea Nitrogen 5 mg/dL (7-18); Bicarbonate 25 mmol/L (21-32); Glucose Level 110 mg/dL (74-106); Potassium 3.8 mmol/L (3.5-5.1); Sodium Level 137 mmol/L (136-145)
[2020-07-02 19:22] LABS: Absolute Lymphocytes (CBC) 2.7 K/uL (0.7-4.9); Basophils % 0.5 % (0-1.3); Hematocrit 42.5 % (36.0-45.0); Lymphocytes % 22.4 % (15.3-44.8); MPV 8.7 fL (7.6-11.3); RBC Red Blood Cell Count 5.36 M/uL (3.86-4.86)
[2020-07-02] MEDS ORDERED: ONDANSETRON 4 MG/2 ML VIAL ONE (19:49)
[2020-07-02 19:57] LABS: Urine Blood NEGATIVE (NEG); Urine Glucose NEGATIVE (NEG); Urine Protein NEGATIVE (NEG); Urine Specific Gravity 1.025 (1.005-1.030); Urine pH 6.5 (5.0-7.0)
--- NOTE | 2020-07-02 20:52 | RAD REPORT ---
EXAM DESCRIPTION: CT - Chest For Pe Angio - 07/02/2020 8:15 pm CLINICAL HISTORY: DYSPNEA,COVID positive COMPARISON: No comparisons TECHNIQUE: Dynamically enhanced 3 mm thick images of the chest were obtained during administration o f approximately 150mL Isovue 370 IV contrast. Coronal and oblique MIP reconstruction images were gene rated and reviewed. Exam utilizes a protocol to evaluate the pulmonary arterial tree. All CT scans are performed using dose optimization technique as appropriate and may include automated exposure control or mA/KV adjustment according to patient size. FINDINGS: No pulmonary emboli are identified. Far peripheral branch assessment is limited due to mot ion. The aorta as imaged shows no acute or suspicious finding. No pericardial thickening or effusion. No dense consolidation or mass. Patchy alveolar opacities are present in the lower lung reyes. No pl eural effusion or pleural thickening. No mediastinal or hilar suspicious masses. No chest wall masses or abnormal axillary lymphadenopathy. IMPRESSION: No central, lobar or segmental branch pulmonary emboli identified. Due to respiratory motion, subsegmental branch assessment is limited. No pulmonary emboli can be conf irmed. Minimal patchy alveolar opacity present in the lower lung ryees, more so to the left.Findings are no nspecific. Given the history, COVID-19 pneumonia is possible though findings are very minimal.
[2020-07-02] MEDS ORDERED: IBUPROFEN 400 MG TAB ONE (21:21)
[2020-07-02 22:01] LABS: Troponin (Emerg Dept Use Only) < 0.02 ng/mL (0.0-0.045)
[2020-07-02] MEDS ORDERED: DIAZEPAM 10 MG/2 ML INJ SYRINGE ONE ×2 (22:23→23:07)
[2020-07-02] MEDS ORDERED: NA CHLORIDE 0.9% 500 ML ONE (22:37)
--- NOTE | 2020-07-02 23:23 | EDPHYS ---
Physician Documentation [facility] Name: Suellen Rivera Age: 29 yrs Sex: Female : 1990 Arrival Date: 07/02/2020 Time: 18:26 Bed 2 Private MD: ED Physician Duane Diaz HPI: 07/02 19:17 This 29 yrs old Female presents to ER via Ambulatory with complaints of kb Nausea/Vomiting/Diarrhea, Dizziness, Body Aches. 19:17 The patient presents to the emergency department with nausea, vomiting, diarrhea. kb Onset: The symptoms/episode began/occurred 10 day(s) ago. Possible causes: covid. The symptoms are aggravated by nothing. The symptoms are alleviated by nothing. Associated signs and symptoms: Pertinent positives: diarrhea, nausea, vomiting. Severity of symptoms: At their worst the symptoms were moderate in the emergency department the symptoms are unchanged. The patient has not experienced similar symptoms in the past. The patient has not recently seen a physician. Pt reports she was diagnosed with covid 10 days ago, but she hasn't gotten over it. Reports nausea, vomiting, diarrhea, headache and bodyaches. Denies shortness of breath. MEDICAL ONCOLOGY PHYSICIAN: 18:31 LMP 06/25/2020 jd3 Historical: - Allergies: 18:31 No Known Allergies; jd3 - Home Meds: 18:31 None [Active]; jd3 - PMHx: 18:31 None; jd3 - PSHx: 18:31 Cholecystectomy; jd3 - Immunization history:: Adult Immunizations up to date. - Social history:: Smoking status: Patient denies any tobacco usage or history of. ROS: 19:15 Cardiovascular: Negative for chest pain, palpitations, and edema, Respiratory: Negative kb for shortness of breath, cough, wheezing, and pleuritic chest pain, MS/Extremity: Negative for injury and deformity, Skin: Negative for injury, rash, and discoloration. 19:15 Constitutional: Positive for body aches, Negative for chills, fatigue, fever, malaise, poor PO intake, weight loss. 19:15 Abdomen/GI: Positive for nausea, vomiting, and diarrhea, Negative for abdominal pain. 19:15 Neuro: Positive for headache. Exam: 19:18 Constitutional: This is a well developed, well nourished patient who is awake, alert, kb and in no acute distress. Head/Face: Normocephalic, atraumatic. Skin: Warm, dry with normal turgor. Normal color with no rashes, no lesions, and no evidence of cellulitis. MS/ Extremity: Pulses equal, no cyanosis. Neurovascular intact. Full, normal range of motion. 19:19 Cardiovascular: Rate: tachycardic, Rhythm: regular. kb 19:19 Respiratory: the patient does not display signs of respiratory distress, Respirations: normal. 19:19 Abdomen/GI: Inspection: obese Bowel sounds: normal, Palpation: abdomen is soft and non-tender, in all quadrants. 19:19 Neuro: Orientation: is normal, to person, place, time \T\ situation. Mentation: is normal, able to follow commands, Motor: is normal, moves all fours, Gait: is steady, without difficulty. Vital Signs: 18:31 BP 128 / 87; Pulse 138; Resp 19 S; Temp 99.3(O); Pulse Ox 100% on R/A; Weight 122.47 kg jd3 (R); Height 5 ft. 3 in. (160.02 cm) (R); Pain 8/10; 18:45 BP 111 / 85; Pulse 148; Resp 17; Pulse Ox 100% ; Pain 8/10; jl7 20:00 BP 115 / 85; Pulse 138; Resp 20; Pulse Ox 99% ; Pain 7/10; rr5 21:06 BP 100 / 59; Pulse 141; Resp 19; Temp 100.3; Pulse Ox 100% ; rr5 22:33 BP 98 / 70; Pulse 120; Resp 15; Pulse Ox 99% ; rr5 22:54 BP 110 / 62; Pulse 136; Resp 19; Temp 99.2; Pulse Ox 99% ; rr5 23:38 BP 101 / 65; Pulse 115; Resp 16; Pulse Ox 99% ; rr5 18:31 Body Mass Index 47.83 (122.47 kg, 160.02 cm) jd3 MDM: 18:33 Patient medically screened. kb 19:15 Data reviewed: vital signs, nurses notes. Data interpreted: Pulse oximetry: on room air kb is 100 %. Interpretation: normal. 19:48 Transition of care: After a detail discussion of the patient's case, care is kb transferred to Britton SMITH. 23:22 Data reviewed: lab test result(s), radiologic studies, CT scan. Counseling: I had a [facility] detailed discussion with the patient and/or guardian regarding: the historical points, exam findings, and any diagnostic results supporting the discharge/admit diagnosis, lab results, radiology results, the need for outpatient follow up, to return to the emergency department if symptoms worsen or persist or if there are any questions or concerns that arise at home. Refusal of service: The patient/guardian displays adequate decision making capability and despite a detailed discussion of alternatives, benefits, risks, and consequences refuses: Admission to the hospital for further work-up and treatment. 07/02 18:36 Order name: CBC with Diff; Complete Time: 19:24 kb 07/02 18:36 Order name: Basic Metabolic Panel; Complete Time: 22:07 kb 07/02 19:52 Order name: Urine Dipstick--Ancillary (enter results); Complete Time: 20:02 tt3 07/02 19:52 Order name: Urine --Ancillary (enter results); Complete Time: 20:02 tt3 07/02 21:44 Order name: Troponin (Emerg Dept Use Only); Complete Time: 22:07 EDMS 07/02 19:38 Order name: CT Chest For PE Angio; Complete Time: 20:58 kb 07/02 22:49 Order name: TSH; Complete Time: 23:36 [facility] 07/02 18:36 Order name: IV Start; Complete Time: 18:56 kb 07/02 19:52 Order name: Urine Dipstick-Ancillary (obtain specimen); Complete Time: 19:52 tt3 07/02 19:52 Order name: Urine Test (obtain specimen); Complete Time: 19:52 tt3 07/02 21:30 Order name: EKG - Nurse/Tech; Complete Time: 22:46 [facility] Administered Medications: 18:56 Drug: NS 0.9% 1000 ml Route: IV; Rate: 1000 ml; Site: left forearm; jl7 20:00 Follow up: Response: No adverse reaction; IV Status: Completed infusion; IV Intake: rr5 1000ml 19:49 Drug: Zofran (Ondansetron) 4 mg Route: IVP; Site: left antecubital; mg2 21:00 Follow up: Response: No adverse reaction rr5 19:50 Drug: NS 0.9% 1000 ml Route: IV; Rate: 1000 ml; Site: left forearm; rr5 21:00 Follow up: Response: No adverse reaction; IV Status: Completed infusion; IV Intake: rr5 1000ml 20:38 Drug: Tylenol 1000 mg Route: PO; rr5 21:05 Follow up: Response: No adverse reaction rr5 21:06 Drug: Motrin 800 mg Route: PO; rr5 22:00 Follow up: Response: No adverse reaction rr5 22:20 Drug: Valium 2 mg Route: IVP; Site: left forearm; rr5 23:39 Follow up: Response: No adverse reaction; Marked relief of symptoms rr5 22:54 Drug: Valium 2 mg Route: IVP; Site: left forearm; rr5 23:39 Follow up: Response: No adverse reaction; Marked relief of symptoms rr5 Disposition: 07/03 13:10 Co-signature as Attending Physician, Duane iDaz MD. rn Disposition: 07/02/20 23:22 Discharged to Home. Impression: Coronavirus infection, unspecified, Nausea with vomiting, unspecified, Diarrhea, unspecified. - Condition is Stable. - Discharge Instructions: Food Choices to Help Relieve Diarrhea, Adult, Nausea and Vomiting, Adult, Bsec-ci-Ckex, Diarrhea, Adult, Zvhq-[id number]-Niqj, COVID-19. - Prescriptions for Zofran ODT 4 mg Oral tablet,disintegrating - place 1 tablet by TRANSLINGUAL route every 4-6 hours; 20 tablet. Bentyl 20 mg Oral Tablet - take 2 tablet by ORAL route every 6 hours As needed; 40 tablet. - Medication Reconciliation Form, Thank You Letter, Antibiotic Education, Prescription Opioid Use form. - Follow up: Emergency Department; When: As needed; Reason: Worsening of condition. Follow up: Private Physician; When: 2 - 3 days; Reason: Recheck today's complaints, Continuance of care, Re-evaluation by your physician. Signatures: Dispatcher [employer] Asuncion Mauricio FNP-C FNP-Britton Le PA PA jmm Nieto, Roman, MD MD rn Leal, Jahala, RN RN jl7 Corky Bonner RN RN jd3 Franklyn Leyva RN RN mg2 Wayne Jimenez RN RN rr5 Mick Bowie tt3 Corrections: (The following items were deleted from the chart) 07/02 19:20 19:18 Constitutional: This is a well developed, well nourished patient who is awake, kb alert, and in no acute distress. Head/Face: Normocephalic, atraumatic. kb 19:42 19:20 Chest Single View+RAD.RAD.BRZ ordered. EDMS EDMS 21:44 21:30 TROPONIN (EMERG DEPT USE ONLY)+C.LAB.BRZ ordered. EDMS EDMS 23:40 23:22 07/02/2020 23:22 Discharged to Home. Impression: Coronavirus infection, rr5 unspecified; Nausea with vomiting, unspecified; Diarrhea, unspecified. Condition is Stable. Discharge Instructions: COVID-19, Food Choices to Help Relieve Diarrhea, Adult, Nausea and Vomiting, Adult, Qeen-ho-Awsc, Diarrhea, Adult, Shoq-gb-Goat. Prescriptions for Bentyl 20 mg Oral Tablet - take 1 tablet by ORAL route every 6 hours As needed; 20 tablet, Zofran 4 mg Oral Tablet - take 1 tablet by ORAL route every 6 hours As needed; 20 tablet. and Forms are Medication Reconciliation Form, Thank You Letter, Antibiotic Education, Prescription Opioid Use. Follow up: Emergency Department; When: As needed; Reason: Worsening of condition. Follow up: Private Physician; When: 2 - 3 days; Reason: Recheck today's complaints, Continuance of care, Re-evaluation by your physician. ino
--- NOTE | 2020-07-02 23:23 | ER ---
Nurse's Notes [facility] Name: Suellen Rivera Age: 29 yrs Sex: Female : 1990 Arrival Date: 07/02/2020 Time: 18:26 Bed 2 Private MD: Diagnosis: Coronavirus infection, unspecified;Nausea with vomiting, unspecified;Diarrhea, unspecified Presentation: 07/02 18:29 Chief complaint: Patient states: "Diagnose with COVID 10 days ago and I took my jd3 medicines that I was given, but I am feeling worse.". Coronavirus screen: At this time, the client does not indicate any symptoms associated with coronavirus-19. Ebola Screen: Patient negative for fever greater than or equal to 101.5 degrees Fahrenheit, and additional compatible Ebola Virus Disease symptoms. Initial Sepsis Screen: Does the patient meet any 2 criteria? No. Patient's initial sepsis screen is negative. Does the patient have a suspected source of infection? No. Patient's initial sepsis screen is negative. Risk Assessment: Do you want to hurt yourself or someone else? Patient reports no desire to harm self or others. Onset of symptoms was July 02, 2020. 18:29 Method Of Arrival: Ambulatory jd3 18:29 Acuity: VIMAL 3 jd3 FRICKERTRON CHECKER: 18:31 LMP 06/25/2020 jd3 Historical: - Allergies: 18:31 No Known Allergies; jd3 - Home Meds: 18:31 None [Active]; jd3 - PMHx: 18:31 None; jd3 - PSHx: 18:31 Cholecystectomy; jd3 - Immunization history:: Adult Immunizations up to date. - Social history:: Smoking status: Patient denies any tobacco usage or history of. Screenin:45 Abuse screen: Denies threats or abuse. Denies injuries from another. Nutritional jl7 screening: No deficits noted. Tuberculosis screening: No symptoms or risk factors identified. Fall Risk IV access (20 points). Total Dong Fall Scale indicates No Risk (0-24 pts). Assessment: 18:34 Reassessment: ECP at bedside. zb 18:45 General: Appears in no apparent distress. uncomfortable, Behavior is calm, cooperative, jl7 appropriate for age. Pain: Complains of pain in [place] Pain currently is 8 out of 10 on a pain scale. Neuro: Level of Consciousness is awake, alert, obeys commands, Oriented to person, place, time, situation. Cardiovascular: Denies chest pain, palpitations, Patient's skin is warm and dry. Chest pain is denied. Respiratory: Reports shortness of breath Airway is patent Respiratory effort is even, unlabored, Respiratory pattern is regular, symmetrical, the patient has mild shortness of breath. GI: Abdomen is non-distended, obese. Derm: Skin is pink, warm \\T\\ dry. 20:00 Reassessment: Patient appears in no apparent distress at this time. Patient is alert, rr5 oriented x 3, equal unlabored respirations, skin warm/dry/pink. complaints of headache, ED provider aware with order made and carried out. 21:00 Reassessment: Patient appears in no apparent distress at this time. Patient is alert, rr5 oriented x 3, equal unlabored respirations, skin warm/dry/pink. reassess by ED provider with order made and carried out. 22:00 Reassessment: Patient appears in no apparent distress at this time. Patient is alert, rr5 oriented x 3, equal unlabored respirations, skin warm/dry/pink. 22:47 Reassessment: Patient appears in no apparent distress at this time. Patient is alert, rr5 oriented x 3, equal unlabored respirations, skin warm/dry/pink. ECG done, kept for observation. 23:36 Reassessment: Patient appears in no apparent distress at this time. Patient is alert, rr5 oriented x 3, equal unlabored respirations, skin warm/dry/pink. discharge instruction given and explained without complaints made Patient states symptoms have improved. Vital Signs: 18:31 BP 128 / 87; Pulse 138; Resp 19 S; Temp 99.3(O); Pulse Ox 100% on R/A; Weight 122.47 kg jd3 (R); Height 5 ft. 3 in. (160.02 cm) (R); Pain 8/10; 18:45 BP 111 / 85; Pulse 148; Resp 17; Pulse Ox 100% ; Pain 8/10; jl7 20:00 BP 115 / 85; Pulse 138; Resp 20; Pulse Ox 99% ; Pain 7/10; rr5 21:06 BP 100 / 59; Pulse 141; Resp 19; Temp 100.3; Pulse Ox 100% ; rr5 22:33 BP 98 / 70; Pulse 120; Resp 15; Pulse Ox 99% ; rr5 22:54 BP 110 / 62; Pulse 136; Resp 19; Temp 99.2; Pulse Ox 99% ; rr5 23:38 BP 101 / 65; Pulse 115; Resp 16; Pulse Ox 99% ; rr5 18:31 Body Mass Index 47.83 (122.47 kg, 160.02 cm) jd3 ED Course: 18:26 Patient arrived in ED. ag5 18:27 Asuncion Campbell FNP-C is PHCP. kb 18:27 Duane Diaz MD is Attending Physician. kb 18:30 Triage completed. jd3 18:32 Arm band placed on. jd3 18:38 Kim Messer RN is Primary Nurse. jl7 19:00 Inserted saline lock: 20 gauge in left forearm, using aseptic technique. ,using aseptic rr5 technique. inserted in am shift. 19:30 Patient has correct armband on for positive identification. Placed in gown. Bed in low rr5 position. Call light in reach. Side rails up X2. monitor tech on. Pulse ox on. NIBP on. 19:44 Primary Nurse role handed off by Kim Messer RN tt3 19:51 PHCP role handed off by Asuncion Campbell FNP-C jmm 19:51 Britton Scott PA is PHCP. jmm 20:00 Urine collected: clean catch specimen, clear. rr5 20:03 Wayne Jimenez RN is Primary Nurse. rr5 20:15 CT Chest For PE Angio In Process Unspecified. EDMS 22:46 EKG done, by ED staff, reviewed by Britton SMITH. rr5 23:38 No provider procedures requiring assistance completed. IV discontinued, intact, zb bleeding controlled, No redness/swelling at site. Pressure dressing applied. Administered Medications: 18:56 Drug: NS 0.9% 1000 ml Route: IV; Rate: 1000 ml; Site: left forearm; jl7 20:00 Follow up: Response: No adverse reaction; IV Status: Completed infusion; IV Intake: rr5 1000ml 19:49 Drug: Zofran (Ondansetron) 4 mg Route: IVP; Site: left antecubital; mg2 21:00 Follow up: Response: No adverse reaction rr5 19:50 Drug: NS 0.9% 1000 ml Route: IV; Rate: 1000 ml; Site: left forearm; rr5 21:00 Follow up: Response: No adverse reaction; IV Status: Completed infusion; IV Intake: rr5 1000ml 20:38 Drug: Tylenol 1000 mg Route: PO; rr5 21:05 Follow up: Response: No adverse reaction rr5 21:06 Drug: Motrin 800 mg Route: PO; rr5 22:00 Follow up: Response: No adverse reaction rr5 22:20 Drug: Valium 2 mg Route: IVP; Site: left forearm; rr5 23:39 Follow up: Response: No adverse reaction; Marked relief of symptoms rr5 22:54 Drug: Valium 2 mg Route: IVP; Site: left forearm; rr5 23:39 Follow up: Response: No adverse reaction; Marked relief of symptoms rr5 Intake: 20:00 IV: 1000ml; Total: 1000ml. rr5 21:00 IV: 1000ml; Total: 2000ml. rr5 Outcome: 23:22 Discharge ordered by . ino 23:38 Discharged to home ambulatory. zb 23:38 Condition: stable 23:38 Discharge instructions given to patient, Instructed on discharge instructions, follow up and referral plans. medication usage, Demonstrated understanding of instructions, follow-up care, medications, Prescriptions given X 2. 23:40 Patient left the ED. rr5 Signatures: Dispatcher [employer] EDMS Asuncion Campbell, LISA MOTORCYCLE RIDING INSTRUCTOR-Britton Le PA PA jmm Leal, Jahala, RN RN jl7 Corky Bonner RN RN jd3 Gardose, Michele, RN RN mg2 Roque, Raymond, RN RN rr5 Nayan Ziegler Tyler tt3 Alysa Cho RN RN zb Corrections: (The following items were deleted from the chart) 22:55 22:54 BP 110 / 62; Pulse 136bpm; Resp 19bpm; Pulse Ox 99%; rr5 rr5 23:38 23:36 Reassessment: Patient appears in no apparent distress at this time. Patient is rr5 alert, oriented x 3, equal unlabored respirations, skin warm/dry/pink. urine sent and repeat troponin sent rr5
[2020-07-03 00:44] VITALS: TEMP 99.2; O2SAT 99
[2020-07-03 00:45] VITALS: BP 101/65
== END 2020-07-02 23:40 | disposition home or self-care (01) ==
LOC: ER 18:24
DX: U07.1 COVID-19 (principal); R19.7 Diarrhea, unspecified
CPT/HCPCS: 85025; 80048; 36415; 81025; 84443; 81003; 84484; 71275; 99285; Q9967; J3360 ×2; J7040; J7030 ×2; J2405

== ENCOUNTER 2020-07-03 14:06 | Inpatient (IN) | payer OTHER ==
[2020-07-03] MEDS ORDERED: DIPHENHYDRAMINE 50 MG/ML VIAL ONE (14:36)
[2020-07-03] MEDS ORDERED: NA CHLORIDE 0.9% 1,000 ML ONE (14:40)
--- NOTE | 2020-07-03 14:58 | RAD REPORT ---
EXAM DESCRIPTION: CT - Head Brain Wo Cont - 07/03/2020 2:50 pm CLINICAL HISTORY: ams COMPARISON: No comparisons TECHNIQUE: Axial 5 mm thick images of the head were obtained without IV contrast. All CT scans are performed using dose optimization technique as appropriate and may include automated exposure control or mA/KV adjustment according to patient size. FINDINGS: No intracranial hemorrhage, mass, edema or shift of mid-line structures. No acute infarcti on changes seen. No abnormal extra-axial fluid collections. Ventricles are normal. Mastoid air cells and visualized portions of the paranasal sinuses are clear. No acute bony findings. IMPRESSION: Negative non-contrast CT head examination.
[2020-07-03 15:30] LABS: Absolute Lymphocytes (CBC) 2.2 K/uL (0.7-4.9); Basophils % 0.4 % (0-1.3); Hematocrit 37.1 % (36.0-45.0); Lymphocytes % 21.6 % (15.3-44.8); MPV 8.5 fL (7.6-11.3); RBC Red Blood Cell Count 4.64 M/uL (3.86-4.86)
[2020-07-03 15:34] LABS: Protime INR 1.15
[2020-07-03] MEDS ORDERED: ACETAMINOPHEN 650MG/RECT SUPP PR ONE (15:44)
[2020-07-03 16:11] LABS: ALT/SGPT 28 U/L (12-78); AST/SGOT 7 U/L (15-37); Albumin 3.2 g/dL (3.4-5.0); Alkaline Phosphatase 82 U/L (45-117); BUN Blood Urea Nitrogen 5 mg/dL (7-18); Bicarbonate 23 mmol/L (21-32); Bilirubin Direct < 0.1 mg/dL (0-0.2); Bilirubin Total 0.3 mg/dL (0.2-1.0); Glucose Level 108 mg/dL (74-106); Potassium 3.7 mmol/L (3.5-5.1); Protein, Total 7.5 g/dL (6.4-8.2); Sodium Level 141 mmol/L (136-145); Troponin (Emerg Dept Use Only) < 0.02 ng/mL (0.0-0.045)
[2020-07-03 16:20] LABS: Urine Bacteria <20 /HPF (<20); Urine RBC <5 /HPF (NONE SEEN)
[2020-07-03 16:26] LABS: Barbiturates NEGATIVE (NEGATIVE); Benzodiazepines NEGATIVE (NEGATIVE); Cocaine NEGATIVE (NEGATIVE); METHAMPHETAM NEGATIVE (NEGATIVE); Methadone NEGATIVE (NEGATIVE); Opiates NEGATIVE (NEGATIVE); Phencyclidine NEGATIVE (NEGATIVE); THC Cannibis NEGATIVE (NEGATIVE)
[2020-07-03 18:02] LABS: Urine Blood NEGATIVE (NEG); Urine Glucose NEGATIVE (NEG); Urine Protein NEGATIVE (NEG); Urine pH 7.5 (5.0-7.0)
[2020-07-03 18:42] LABS: CSF Glucose 61 mg/dL (40-70)
[2020-07-03 19:10] LABS: Appearance CLEAR (CLEAR); Body Fluid Source CSF; Body Fluid WBC 133 /mm^3; Color of fluid Colorless (COLORLESS)
[2020-07-03 19:11] LABS: Appearance CLEAR (CLEAR); Body Fluid Source CSF; Body Fluid WBC 143 /mm^3; Color of fluid Colorless (COLORLESS); Fluid Total Volume 12 ml
--- NOTE | 2020-07-03 20:09 | ER ---
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 14:15 Coronavirus screen: Client reports previous positive COVID test result. x 11 days. jl7 Ebola Screen: No symptoms or risks identified at this time. Initial Sepsis Screen: Does the patient meet any 2 criteria? Altered Mental Status. HR > 90 bpm. Yes Does the patient have a suspected source of infection? No. Patient's initial sepsis screen is negative. Risk Assessment: Do you want to hurt yourself or someone else? Patient reports no desire to harm self or others. Onset of symptoms was July 03, 2020 at 03:00. Care prior to arrival: Medication(s) given: Normal saline infusion, 500 mL, IV initiated. 20 GA, in the left antecubital area, Glucose check: 105. 14:15 Method Of Arrival: EMS: [facility] 14:15 Acuity: VIMAL 2 jl7 Triage Assessment: 14:15 General: Appears in no apparent distress. uncomfortable, obese, Behavior is Pt's eyes jl7 open, no verbal response, withdrawals from pain. Pain: Unable to use pain scale. Patient is unresponsive. Neuro: Level of Consciousness is awake, alert, Moves all extremities. Full function Speech with expressive aphasia noted, Pupils are PERRLA. Cardiovascular: Heart tones present Patient's skin is warm and dry. Respiratory: Airway is patent Respiratory effort is even, unlabored, Respiratory pattern is symmetrical, tachypnea. GI: Abdomen is obese. Derm: Skin is dry, Skin is flushed, Skin temperature is hot. 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 - Social history:: Smoking status: unknown. Screenin:30 Abuse screen: unable to obtain. Nutritional screening: unable to obtain. Tuberculosis jl7 screening: unable to obtain. Fall Risk Total Dong Fall Scale indicates High Risk Score (45 or more points). Fall prevention measures have been instituted. Side Rails Up X 2 Placed Close to Nursing Station Frequent Obs/Assessments Occuring As available patient and family educated on Fall Prevention Program and Strategies. Assessment: 14:30 Reassessment: Pt's mom at bedside, close to pt's face, loudly asking pt what's wrong. jl7 Pt's mom denies any medical history, informed mom that she will need to wait outside so we can get labs and radiology going, pt's mom states "I'm not leaving. This is my daughter and I am not leaving." Explained to pt's mom that hospital policy is no visitors in the ER at this time due to COVID. Informed her that I will call her as soon as labs come back, to give me 2 hours to get everything together, mom verbalized understanding. 15:10 Reassessment: pt's mother on the phone, mother seems very agitated, speaking over me, iw states she wants to be let back so she can take her daughter to [place] because we a re not doing anything for her. I advised the mother that the pt is in CT at this time and we will draw labs and urine when she returns to the room, pt's mother is insisting that she come into the department, I advised her that she will not be allowed back at this time, pt is COVID + and it is against out policy, pt mother insists on taking pt to [place], I advised her once again that it would not be safe to take pt out of the dept to drive her to [place] . I told mother that she can call back in one hour to receive results , mother agreed. 15:43 Reassessment: pt mother on the phone again, screaming that she wants to be let back iw into the dept. 16:24 Reassessment: Mother brought back to ER room 11, speaking with Dr. Diaz about LP and iw POC. 17:40 Reassessment: Pt able to sit at side of bed during LP, with support from Britton SMITH, barbara [facility], and HENRY Alvarez. Post procedure pt laid back down on bed on her back. I asked pt if her mom can come back to bedside and pt respirations increased, appeared as though she wanted to communicate but still unable to verbally respond. 17:55 Reassessment: called mother and updated her that Dr. Diaz was able to obtain CSF iw sample and it is being sent to lab, will take approx 1 hour for results, mother verbalizes understanding. 18:30 Reassessment: Mother was allowed to come sit with pt while awaiting CSF results, mother iw understands that she is to remain in the room, mother is appreciative , sitting at bedside with pt. 19:30 Reassessment: Patient and/or family updated on plan of care and expected duration. Pain ll2 level reassessed. pt is awake but unable to verbally communicate. 20:41 Reassessment: Patient and/or family updated on plan of care and expected duration. Pain ll2 level reassessed. Vital Signs: 14:15 BP 128 / 67; Pulse 128; Resp 15; Temp 100.8; Pulse Ox 99% ; jl7 15:15 BP 130 / 82; Pulse 128; Resp 28; Pulse Ox 100% on R/A; 5 16:06 BP 131 / 75; Pulse 130; Resp 32; Temp 101.2(A); Pulse Ox 100% on R/A; 5 17:51 BP 123 / 73; Pulse 118; Resp 28; Temp 100.7; Pulse Ox 100% ; jl7 19:00 BP 133 / 73; Pulse 119; Resp 24; Pulse Ox 100% ; jl7 07/05 21:00 BP 151 / 87; Pulse 77; Resp 18; Pulse Ox 95% on R/A; ED Course: 07/03 14:12 Patient arrived in ED. jlSafia 14:12 Britton Scott PA is PHCP. [facility] 14:12 Duane Diaz MD is Attending Physician. [facility] 14:30 Urine collected: Zuniga catheter specimen, clear. Zuniga cath inserted, using sterile jl7 technique, 16 Fr., by ne, balloon inflated, to gravity drainage, urine specimen collected. 14:49 CT Head Brain wo Cont In Process Unspecified. EDMS 14:58 Kim Messer, RN is Primary Nurse. jl7 15:31 Triage completed. jl7 15:32 Arm band placed on right wrist. jl7 16:05 Urine Dipstick--Ancillary (enter results) Sent. [facility] 16:12 Patient has correct armband on for positive identification. Placed in gown. Bed in low mh5 position. Call light in reach. Side rails up X2. cafeteria monitor on. Pulse ox on. NIBP on. 16:12 Initial lab(s) drawn, by ne, sent to lab. Inserted saline lock: 20 gauge in right 5 antecubital area, using aseptic technique. Blood collected. Maintain EMS IV. Dressing intact. Site clean \\T\\ dry. 17:52 Assist provider with lumbar puncture: Set up LP tray. Performed by Duane Diaz MD CSF jl7 is clear. Puncture site dressed with band aid, Procedure was successful. Patient tolerated well. 20:07 Arnav Olivares MD is Hospitalizing Provider. [facility] 07/05 16:00 initiated transfer to [facility], spoke with Bhargavi odonnell 21:29 Patient transferred, IV remains in place. Administered Medications: 07/03 14:35 Drug: diphenhydrAMINE 12.5 mg Route: IVP; Site: left antecubital; 7 15:00 Follow up: Response: No adverse reaction; No change in condition jl7 15:36 Drug: NS 0.9% 1000 ml Route: IV; Rate: 1 bolus; Site: right antecubital; jl7 16:00 Drug: Tylenol Suppository 650 mg Route: SD; jl7 17:50 Follow up: Response: Temperature is decreased jl7 20:15 Drug: Rocephin - (cefTRIAXone) 1 grams Route: IVPB; Infused Over: 30 mins; Site: right ll2 antecubital; 20:15 Drug: vancoMYCIN 1 grams Route: IVPB; Infused Over: 2 hrs; Site: right antecubital; ll2 20:26 Drug: Decadron - Dexamethasone 10 mg Route: IVP; Site: left antecubital; ll2 Outcome: 20:09 Decision to Hospitalize by Provider. [facility] 07/05 21:28 Transferred by ground EMS to [facility], Transfer form completed. X-rays sent w/ patient. Note: Report given to [facility] Condition: stable Instructed on the need for transfer. 21:30 Patient left the ED. Signatures: Dispatcher [employer] EDMS Janel Das Joel, PA PA jmm Williams, Irene, RN Ewa Segovia [facility] Kim Messer RN RN jl7 Sofi Wilkins RN RN Estee Banuelos RN RN ll2 Corrections: (The following items were deleted from the chart) 07/03 18:24 17:52 Assist provider with lumbar puncture: Set up LP tray. Performed by Duane murphy7 CSF is clear. Puncture site dressed with band aid, Procedure was successful. Procedure unsuccessful. Patient tolerated well. mh5
--- NOTE | 2020-07-03 20:09 | EDPHYS ---
Physician Documentation [facility] Name: Suellen Rivera Age: 29 yrs Sex: Female : 1990 Arrival Date: 07/03/2020 Time: 14:12 Bed 27 Private MD: ED Physician Duane Diaz HPI: 07/03 15:14 This 29 yrs old Female presents to ER via Unassigned with complaints of jmm Altered mental status. 15:14 The patient presents with decreased responsiveness. Onset: The symptoms/episode jmm began/occurred last night, at 03:00. Possible causes: unknown. Current symptoms: In the emergency department the patient's symptoms are unchanged from the initial presentation. This is a 29 year old female with no chronic medical conditions that presents to the ED with altered mental status. Patient is not talking to family but does partially respond to verbal demands. . 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 - Social history:: Smoking status: unknown. ROS: 15:14 Unable to obtain ROS due to altered mental status. jmm Exam: 15:14 Head/Face: atraumatic. Eyes: EOMI, no conjunctival erythema appreciated ENT: Moist jmm Mucus Membranes Neck: Trachea midline, Supple Chest/axilla: Normal chest wall appearance and motion. Cardiovascular: Regular rate and rhythm. No edema appreciated Respiratory: Normal respirations, no respiratory distress appreciated 15:14 Constitutional: The patient appears alert, obese. 15:14 Abdomen/GI: Inspection: obese Palpation: soft, in all quadrants. 15:14 Musculoskeletal/extremity: moves all fours. 15:14 Skin: Appearance: Color: normal in color. 15:14 Neuro: Orientation: unable to test, ams. Vital Signs: 14:15 BP 128 / 67; Pulse 128; Resp 15; Temp 100.8; Pulse Ox 99% ; jl7 15:15 BP 130 / 82; Pulse 128; Resp 28; Pulse Ox 100% on R/A; mh5 16:06 BP 131 / 75; Pulse 130; Resp 32; Temp 101.2(A); Pulse Ox 100% on R/A; [facility] 17:51 BP 123 / 73; Pulse 118; Resp 28; Temp 100.7; Pulse Ox 100% ; 7 19:00 BP 133 / 73; Pulse 119; Resp 24; Pulse Ox 100% ; [facility] 07/05 21:00 BP 151 / 87; Pulse 77; Resp 18; Pulse Ox 95% on R/A; Procedures: 07/03 17:32 Lumbar Puncture: Patient placed in left lateral decubitus position. Prepped with rn Betadine. Draped using sterile technique. Collected 12 ml's of clear fluid. Sample sent to lab. Puncture site dressed with band aid, Patient tolerated well. Opening pressure 40, closing pressure 30. MDM: 14:20 Patient medically screened. [facility] 19:46 Data reviewed: vital signs, nurses notes. Counseling: I had a detailed discussion with [facility] the patient and/or guardian regarding: the historical points, exam findings, and any diagnostic results supporting the discharge/admit diagnosis, lab results. 20:06 Data reviewed: lab test result(s), radiologic studies, CT scan. Counseling: I had a [facility] detailed discussion with the patient and/or guardian regarding: radiology results, the need for further work-up and treatment in the hospital. ED course: I discussed the patient with Dr. Everett whom recommended IV steroids, MRI and EEG. 07/03 14:18 Order name: Acetaminophen; Complete Time: 16:29 [facility] 07/03 14:18 Order name: Basic Metabolic Panel; Complete Time: 16:29 [facility] 07/03 14:18 Order name: CBC with Diff; Complete Time: 15:40 [facility] 07/03 14:18 Order name: ETOH Level; Complete Time: 16:14 [facility] 07/03 14:18 Order name: Hepatic Function; Complete Time: 16:29 [facility] 07/03 14:18 Order name: PT-INR; Complete Time: 15:40 [facility] 07/03 14:18 Order name: Ptt, Activated; Complete Time: 15:40 [facility] 07/03 14:18 Order name: Salicylate; Complete Time: 16:14 [facility] 07/03 14:18 Order name: Urine Drug Screen; Complete Time: 16:29 [facility] 07/03 14:19 Order name: Troponin (emerg Dept Use Only); Complete Time: 16:29 [facility] 07/03 14:23 Order name: Procalcitonin; Complete Time: 16:17 [facility] 07/03 14:23 Order name: Lactate; Complete Time: 15:48 [facility] 07/03 14:23 Order name: Blood Culture Adult (2) [facility] 07/03 15:06 Order name: CSF Bacterial Antigens (tube 1); Complete Time: 18:44 [facility] 07/03 15:06 Order name: Csf Culture [facility] 07/03 15:06 Order name: Fluid Cell Count,Body; Complete Time: 19:38 [facility] 07/03 15:06 Order name: Spinal Fluid Profile; Complete Time: 19:38 [facility] 07/03 15:22 Order name: Urine Culture; Complete Time: 20:17 [facility] 07/03 15:22 Order name: Urine Microscopic Only; Complete Time: 16:29 [facility] 07/03 15:33 Order name: Urine Dipstick--Ancillary (enter results) eb 07/03 15:33 Order name: Urine Dipstick-Ancillary; Complete Time: 18:27 [facility] 07/04 02:09 Order name: COVID-19 : Document "Date of Symptom Onset" if Symptomatic. tt3 07/04 04:08 Order name: CORONAVIRUS [facility] 07/04 05:58 Order name: CBC with Automated Diff; Complete Time: 07:05 [facility] 07/04 05:59 Order name: SARS-COV-2 RT PCR; Complete Time: 07:05 [facility] 07/04 06:23 Order name: Comprehensive Metabolic Panel; Complete Time: 07:05 [facility] 07/04 06:23 Order name: Phosphorus; Complete Time: 07:05 [facility] 07/04 06:23 Order name: T4 Free; Complete Time: 07:05 [facility] 07/04 06:23 Order name: Magnesium; Complete Time: 07:05 [facility] 07/04 06:23 Order name: Thyroid Stimulating Hormone; Complete Time: 07:05 [facility] 07/03 14:13 Order name: CT Head Brain wo Cont; Complete Time: 15:01 [facility] 07/03 14:18 Order name: EKG; Complete Time: 14:19 [facility] 07/03 14:18 Order name: EKG - Nurse/Tech; Complete Time: 16:37 [facility] 07/03 14:18 Order name: IV Saline Lock; Complete Time: 16:37 [facility] 07/03 14:18 Order name: Labs collected and sent; Complete Time: 16:37 [facility] 07/03 14:18 Order name: Urine Dipstick-Ancillary (obtain specimen); Complete Time: 16:38 [facility] 07/03 15:06 Order name: LP Consents; Complete Time: 16:37 [facility] 07/03 15:06 Order name: LP Setup; Complete Time: 16:37 [facility] 07/04 19:39 Order name: MRI; Complete Time: 20:17 EDMS 07/05 05:53 Order name: CBC with Automated Diff; Complete Time: 20:17 EDMS 07/05 05:56 Order name: Comprehensive Metabolic Panel; Complete Time: 20:17 EDMS 07/05 05:56 Order name: Phosphorus; Complete Time: 20:17 EDMS 07/05 05:56 Order name: Magnesium; Complete Time: 20:17 EDMS 07/05 13:24 Order name: Vancomycin Level Trough; Complete Time: 20:17 EDMS Administered Medications: 14:35 Drug: diphenhydrAMINE 12.5 mg Route: IVP; Site: left antecubital; jl7 15:00 Follow up: Response: No adverse reaction; No change in condition jl7 15:36 Drug: NS 0.9% 1000 ml Route: IV; Rate: 1 bolus; Site: right antecubital; jl7 16:00 Drug: Tylenol Suppository 650 mg Route: [place]; jl7 17:50 Follow up: Response: Temperature is decreased jl7 20:15 Drug: Rocephin - (cefTRIAXone) 1 grams Route: IVPB; Infused Over: 30 mins; Site: right ll2 antecubital; 20:15 Drug: vancoMYCIN 1 grams Route: IVPB; Infused Over: 2 hrs; Site: right antecubital; ll2 20:26 Drug: Decadron - Dexamethasone 10 mg Route: IVP; Site: left antecubital; ll2 Disposition: 07/06 07:06 Co-signature as Attending Physician, Duane Diaz MD. rn Disposition: 07/03/20 20:09 Hospitalization ordered by Arnav Olivares for Inpatient Admission. 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 - Bed requested for [facility] ER HOLD. - Status is Inpatient Admission. wh - Condition is Stable. - Problem is new. - Symptoms are unchanged. Signatures: Dispatcher [employer] EDMS Britton Scott PA PA jmm Nieto, Roman, MD MD rn Roszak, Josh, PA PA jr8 Seraifn Arboleda, [employer]Cla[employer] Ronit Dean, RN RN cg Kim Messer, RN RN jl7 Sofi Wilkins, RN RN Estee Banuelos, RN RN ll2 Corrections: (The following items were deleted from the chart) 07/03 21:52 20:09 Hospitalization Ordered by Arnav Olivares MD for Inpatient Admission. 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 Bed requested for Intensive Care Unit. Status is Inpatient Admission. Condition is Stable. Problem is new. Symptoms are unchanged. [facility] 07/05 21:30 07/03 21:52 07/03/2020 20:09 Hospitalization Ordered by Arnav Olivares MD for Inpatient Admission. 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 Bed requested for [facility] ER HOLD. Status is Inpatient Admission. Condition is Stable. Problem is new. Symptoms are unchanged. cg
[2020-07-03] MEDS ORDERED: VANCOMYCIN 1 GM/VIAL ONE (20:16)
[2020-07-03] MEDS ORDERED: NA CHLORIDE 0.9% 250 ML ONE (20:17)
[2020-07-03] MEDS ORDERED: CEFTRIAXONE/SWI 1gm 1 GM/10 ML SYR ONE (20:17)
[2020-07-03] MEDS ORDERED: dexAMETHasone 4 MG/ML VIAL ONE (20:35)
[2020-07-03] MEDS ORDERED: MORPHINE 2 MG/ML SYR IV PRN (21:26)
[2020-07-03] MEDS ORDERED: ONDANSETRON 4 MG/2 ML VIAL IV PRN (21:26)
--- NOTE | 2020-07-03 21:48 | P.HP ---
Certification for Inpatient Patient admitted to: Inpatient With expected LOS: >2 Midnights Patient will require the following post-hospital care: None Practitioner: I am a practitioner with admitting privileges, knowledge of patient current condition, hospital course, and medical plan of care. Services: Services provided to patient in accordance with Admission requirements found in Title 42 Section 412.3 of the Code of Federal Regulations <Serafin Arboleda - Last Filed: 07/03/20 21:42> Patient History Date of Service: 07/03/20 Primary Care Provider: none Reason for admission: Aseptic meningitis History of Present Illness: 29-year-old female with no significant chronic health conditions presents emergency department for altered mental status. Patient positive for COVID approximately 11 days ago and has been feeling ill since then. Yesterday was seen in the ER for fever, tachycardia and declined admission. Presented to the ER by EMS today after being found by her family unresponsive. Patient was witnessed to be lying in bed with her eyes open but not responding to any verbal stimulus, does withdraw from pain. Workup in the ER significant for white blood cell count 10.2 pro calcitonin 0.05 lumbar puncture significant for CSF total protein 100, white blood cell 143 glucose 61 appearance is clear. Opening pressure was elevated. CT head negative, Case was discussed with neurology who suspects aseptic meningitis. Recommendation for admission to the ICU with Decadron, Rocephin/vancomycin, EEG, MRI made. When I saw the patient in the ER she was laying in the stretcher with her eyes open, did make eye contact with me and turn her head towards me when I said her name but could not communicate verbally. Patient appears encephalopathic, neck is supple Kernig/Brudzinski test negative. Mother at bedside, case discussed at length with her, will admit for further evaluation and management. - Past Medical/Surgical History Diabetic: No -: none -: vaginal delivery 02/24/08 -: vaginal delivery 11/02/09 -: gall bladder 2008 Psychosocial/ Personal History: Patient lives at home with her mother, unemployed mother of 4 children - Family History Mother -: Hypertension, Diabetes - Social History Smoking Status: Never smoker Alcohol use: No CD- Drugs: No Caffeine use: No Place of Residence: Home <Serafin Arboleda - Last Filed: 07/03/20 21:42> Date of Service: 07/03/20 <Arnav Olivareszal - Last Filed: 07/21/20 16:03> Allergies No Known Allergies Allergy (Verified 04/19/15 16:38) Home Medications: NK [No Home Meds] 07/04/20 Review of Systems is unable to be obtained <Serafin Arboleda - Last Filed: 07/03/20 21:42> Physical Examination - Physical Exam General: Other (Eyes open, withdraws from pain, no verbal communication at this time. Does track with her eyes and moves her head.) HEENT: PERRLA, Mucous membr. moist/pink Neck: Supple Respiratory: Clear to auscultation bilaterally, Normal air movement Cardiovascular: No gallops, No murmurs, Irregular heart rate/rhythm (Sinus tachycardia rate around 130) Capillary refill: <2 Seconds Gastrointestinal: Normal bowel sounds, Soft and benign Musculoskeletal: No contractures, No erythema, No tenderness Integumentary: No tenderness/swelling, No erythema, No warmth Neurological: Other (Appears encephalopathic, eyes open, not responding verbally, withdraws from pain does track movement with eyes and head.) - Studies Laboratory Data (last 24 hrs) 07/03/20 15:15: PT 13.3 H, INR 1.15, APTT 24.7 07/03/20 15:15: WBC 10.20 D, Hgb 12.0, Hct 37.1, Plt Count 344 07/03/20 15:15: Sodium 141, Potassium 3.7, BUN 5 L, Creatinine 0.55, Glucose 108 H, Total Bilirubin 0.3, AST 7 L, ALT 28, Alkaline Phosphatase 82 Microbiology Data (last 24 hrs): 07/03/20 17:32 Cerebral Spinal Fluid CSF Bacterial Antigens (Tube 1) - Final <Serafin Arboleda - Last Filed: 07/03/20 21:42> Assessment and Plan - Plan Assessment Altered mental status secondary to suspected aseptic meningitis/encephalitis Plan Altered mental status secondary to suspected aseptic meningitis/encephalitis: Lumbar puncture with total protein 100 glucose 61 CSF white blood cell count 133, 81% lymphocyte 10% neutrophil 9% monocyte clear spinal fluid bacterial antigen negative. Appears to be aseptic meningitis, case was discussed with neurology recommend Decadron 4 mg q 6 in addition to Rocephin/vancomycin. MRI/EEG ordered for the morning. NPO at this time. DVT prophylaxis Lovenox 40 mg subcutaneous once daily. P.r.n. pain and nausea medications. Appreciate further input from neurology. Discharge Plan: Home Plan to discharge in: Greater than 2 days - Advance Directives Does patient have a Living Will: No Does patient have a Durable POA for Healthcare: No - Code Status/Comfort Care Code Status Assessed: Yes (Full code) Critical Care: No Time Spent Managing Pts Care (In Minutes): 55 <Serafin Arboleda - Last Filed: 07/03/20 21:42> - Problems (Diagnosis) (1) Viral encephalitis Status: Acute <Arnav Olivares - Last Filed: 07/21/20 16:03> Date of Service: 07/04/20 Patient has viral encephalitis in is not really interacting. Will probably need to transfer to tertiary care facility may need repeat lumbar puncture to decrease intracranial pressure. Continue with steroids and antiviral therapy. <Arnav Olivares - Last Filed: 07/21/20 16:03>
[2020-07-03] MEDS: NA CHLORIDE 0.9% 1,000 ML IV SCH (22:00)
[2020-07-03 23:24] VITALS: BMI 46.0
[2020-07-03] MEDS ORDERED: VANCOMYCIN 2 GM in NA CHLORIDE 0.9% 500 ML IVPB ONE (23:50)
[2020-07-04] MEDS ORDERED: NA CHLORIDE 0.9% 500 ML ONE (00:35)
[2020-07-04] MEDS ORDERED: VANCOMYCIN 1 GM/VIAL ONE ×2 (00:35→00:57)
[2020-07-04] MEDS ORDERED: NA CHLORIDE 0.9% 1,000 ML ONE ×2 (00:55→11:39)
[2020-07-04] MEDS ORDERED: dexAMETHasone 4 MG/ML VIAL ONE ×5 (03:12→20:50)
[2020-07-04] MEDS: ACETAMINOPHEN 650MG/RECT SUPP PR PRN ×3 (04:06→22:15)
[2020-07-04] MEDS ORDERED: ACETAMINOPHEN 650MG/RECT SUPP PR ONE ×3 (04:14→22:29)
[2020-07-04] MEDS: dexAMETHasone 10 MG/ML VIAL IV SCH ×2 (05:51)
[2020-07-04 05:52] LABS: Absolute Lymphocytes (CBC) 1.2 K/uL (0.7-4.9); Basophils % 0.1 % (0-1.3); Hematocrit 36.9 % (36.0-45.0); Lymphocytes % 13.5 % (15.3-44.8); MPV 8.3 fL (7.6-11.3); RBC Red Blood Cell Count 4.62 M/uL (3.86-4.86)
[2020-07-04 06:23] LABS: ALT/SGPT 24 U/L (12-78); AST/SGOT 10 U/L (15-37); Albumin 3.2 g/dL (3.4-5.0); Alkaline Phosphatase 78 U/L (45-117); BUN Blood Urea Nitrogen 6 mg/dL (7-18); Bicarbonate 21 mmol/L (21-32); Bilirubin Total 0.3 mg/dL (0.2-1.0); Glucose Level 127 mg/dL (74-106); Magnesium 2.1 mg/dL (1.8-2.4); Phosphorus 1.6 mg/dL (2.5-4.9); Potassium 3.8 mmol/L (3.5-5.1); Protein, Total 7.6 g/dL (6.4-8.2); Sodium Level 139 mmol/L (136-145); Thyroid Stimulating Hormone 0.294 uIU/mL (0.360-3.740)
[2020-07-04] MEDS ORDERED: VANCOMYCIN/NS 1 gm 1 GM/250 ML BAG IVPB SCH (09:00)
[2020-07-04] MEDS ORDERED: CEFTRIAXONE 2,000 MG in NA CHLORIDE 0.9% 100 ML IV SCH (09:00)
[2020-07-04] MEDS: ENOXAPARIN 40 MG/0.4 ML SQ SCH (09:24)
[2020-07-04] MEDS: CEFTRIAXONE/SWI 2gm 2 GM/20 ML SYR IV SCH ×2 (09:24→21:00)
[2020-07-04] MEDS ORDERED: ENOXAPARIN 40 MG/0.4 ML SQ ONE (09:35)
[2020-07-04] MEDS: NA CHLORIDE 0.9% 1,000 ML IV SCH ×2 (11:23→17:56)
[2020-07-04] MEDS: dexAMETHasone 4 MG/ML VIAL IV SCH ×2 (11:26→17:11)
[2020-07-04] MEDS ORDERED: levETIRAcetam 500 MG in NA CHLORIDE 0.9% 100 ML IV ONE (11:59)
[2020-07-04] MEDS ORDERED: POTASSIUM PHOS IN 0.9 % NACL 15 MMOL/250 ML BAG IV ONE (12:14)
[2020-07-04] MEDS: VANCOMYCIN 2 GM in NA CHLORIDE 0.9% 500 ML IVPB SCH (12:30)
[2020-07-04] MEDS: levETIRAcetam 500 MG in NA CHLORIDE 0.9% 100 ML IV SCH ×2 (12:44→21:00)
--- NOTE | 2020-07-04 19:38 | RAD REPORT ---
EXAM DESCRIPTION: MRI - Brain W/Wo Cont - 07/04/2020 7:15 pm CLINICAL HISTORY: Alteration of consciousness/confusion COMPARISON: July 03, [address] TECHNIQUE: Axial, sagittal, and coronal magnetic images of the brain were obtained. 20 cc MultiHance administered intravenously FINDINGS: No abnormal signal within the brain. The ventricles are normal in caliber. Diffusion-weighted/ ADC mapping sequences do not demonstrate evidence of an acute infarction. No abnormal enhancement within the brain is seen. No abnormal enhancement of the meninges An extra-axial fluid collection is not noted. Fluid within the sinuses/mastoids is not seen. Minimal chronic sinusitis IMPRESSION: No acute abnormality displayed No abnormal enhancement of the meninges
--- NOTE | 2020-07-04 20:18 | CON ---
Reason For Consultation: Consultation called because of confusion with COVID positivity. History Of Present Illness: Ms. Rivera is a 29-year-old right-handed patient, who is COVID-1 9 positive and was admitted to [facility] on the with disorientation, confusion, and po or responsiveness. The patient's mother is at bedside. Apparently, she was lying unresponsively, ey es open, would not respond to verbal stimulation. She did withdraw to pain and was brought in. Her workup included CBC showing a normal white count with however slightly elevated neutrophils of 84.6, WBCs 8.7. Coagulation panel unremarkable. Chemistries show no significant abnormalities, glucose ar ound 108 to 127. Liver function studies unremarkable. Procalcitonin negative. She did have a lumba r puncture, which showed elevated protein of 100, glucose 61 with WBCs 143, 83% lymphocytes, 50%, mon ocytes, and 2% neutrophils. She had a negative U-Tox screen and positive COVID-[address] scan showed no acute ischemic or hemorrhagic changes. The study was unremarkable. Past Medical History: No significant past medical history. Allergies: NO KNOWN DRUG ALLERGIES. Medications: At home, iron supplementation. Past Surgical History: She has had spontaneous vaginal deliveries x2 and has had cholecystectomy in 2007. Family History: Positive for diabetes and hypertension in mother. Social History: No alcohol, tobacco, or IV drug use. Review of Systems: The patient is just beginning to respond. Cannot get a reliable review of systems. Physical Examination: Vital Signs: Blood pressure 139/79, pulse ranged 108 to 117, respiratory rate 18 to 23, temperature 99.4, oxygen saturation 98% on room air, weight 206 pounds, height 5 feet 3 inches, BMI 46.1. General: Ms. Rivera is resting in bed. She does move the arms and legs now equally. Earlier, she wa s very poorly responsive. She did have steroids started, Decadron 10 mg with 4 mg every 6 hours and did receive Keppra after mother reported some potential what looked like tremors of the left upper ex tremity. Neurological: As indicated, the patient does respond to some verbal stimulation now, moves the arms and legs. Otherwise, no obvious tonic or clonic activity. Tone is normal. Unable to fully complete an exam due to the patient's poor level of cooperative status, but movements of the arms do not show any focal deficits [id number]. Assessment: Ms. Rivera is a 29-year-old patient with possible COVID related encephalopathy and enceph alitis. CSF shows increased protein, which is likely related to viral activated immune response in t he SERVICE [employer]ATION HEL[employer] with elevated white blood cell count, essentially lymphocytes and mononuclear cells. She did receive Rocephin for antibiotic coverage, but not likely to represent bacteria infection. Vancomycin also was given. She is now on Keppra 500 mg IV every 12 hours after receiving load of a gram and sh e is on Decadron 4 mg every 6 hours. She is beginning to respond with movements of arms being symmet spring and some initial response of verbal interaction. Plan: 1.Continue with course of steroids along with Keppra. 2.The patient's mother would like her transferred out to [place]. At this point, we are trying to g et a brain MRI, this is without and with contrast to look for meningeal inflammation, which may be id entified to help secure her diagnosis. We will attempt to transfer the patient to [place] if there i s a bed available. NILES/CAYLA Voice ID: [id number] Report ID: [id number]
[2020-07-04] MEDS ORDERED: CEFTRIAXONE/SWI 1gm 0 GM/0 ML SYR ONE (20:47)
[2020-07-04] MEDS ORDERED: LEVETIRACETAM 500 MG/5 ML VIAL IV ONE ×2 (20:47→23:09)
[2020-07-04] MEDS ORDERED: NA CHLORIDE 0.9% 100 ML ONE (20:47)
[2020-07-04] MEDS ORDERED: KETOROLAC 30 MG/ML INJ IM ONE (22:43)
[2020-07-04] MEDS ORDERED: levETIRAcetam 250 MG in NA CHLORIDE 0.9% 100 ML IV ONE (22:46)
[2020-07-04] MEDS ORDERED: KETOROLAC 30 MG/ML INJ ONE (23:08)
[2020-07-05] MEDS: dexAMETHasone 4 MG/ML VIAL IV SCH ×4 (00:38→18:11)
[2020-07-05] MEDS: VANCOMYCIN 2 GM in NA CHLORIDE 0.9% 500 ML IVPB SCH ×2 (01:42→14:57)
[2020-07-05] MEDS: NA CHLORIDE 0.9% 1,000 ML IV SCH ×3 (04:00→14:00)
[2020-07-05] MEDS ORDERED: dexAMETHasone 4 MG/ML VIAL ONE ×3 (05:31→18:27)
[2020-07-05 05:48] LABS: Absolute Lymphocytes (CBC) 1.5 K/uL (0.7-4.9); Basophils % 0.2 % (0-1.3); Lymphocytes % 13.1 % (15.3-44.8); MPV 8.9 fL (7.6-11.3); RBC Red Blood Cell Count 4.54 M/uL (3.86-4.86)
[2020-07-05 05:51] LABS: ALT/SGPT 31 U/L (12-78); AST/SGOT 57 U/L (15-37); Albumin 2.9 g/dL (3.4-5.0); Alkaline Phosphatase 65 U/L (45-117); BUN Blood Urea Nitrogen 9 mg/dL (7-18); Bicarbonate 26 mmol/L (21-32); Bilirubin Total 0.3 mg/dL (0.2-1.0); Glucose Level 116 mg/dL (74-106); Magnesium 2.2 mg/dL (1.8-2.4); Phosphorus 2.7 mg/dL (2.5-4.9); Sodium Level 142 mmol/L (136-145)
--- NOTE | 2020-07-05 07:32 | P.PN ---
Subjective Date of Service: 07/04/20 Patient moves her extremities but really does not follow commands well. Continue with MRI. Attending transfer to [facility] for neuro ICU nurses [facility]. At this time no beds are available throughout the [place] area. We will keep trying. Continue anti epileptics along with enoc roids. 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 Review of Systems is unable to be obtained Physical Examination - Vital Signs Temperature: 98.8 F Blood Pressure: 136/73 Pulse: 92 Respirations: 30 Pulse Ox (%): 95 - Physical Exam General: Confused HEENT: Atraumatic, Normocephalic Respiratory: Clear to auscultation bilaterally, Normal air movement Cardiovascular: Regular rate/rhythm, Normal S1 S2 Gastrointestinal: Normal bowel sounds, Soft and benign, Non-distended Musculoskeletal: No clubbing, No swelling Neurological: Cranial nerves 3-12 intact, Other (Patient moves all her ex tremities in response to pain with grimacing and withdrawal), Abnormal gait, Abnormal speech, Abnormal strength, Abnormal tone Assessment & Plan - Problems (Diagnosis) (1) Viral encephalitis Current Visit: Yes Status: Acute - Plan Plan: 1. Continue with IV steroids 2. Continue with IV antibiotics pending cultures 3. Continue with gentle hydration 4. May need to repeat lumbar puncture and repeat check opening pressure 5. Anti epileptics 6. MRI pending 7. Unable to obtain EEG-transfer to tertiary care facility 8. GI and DVT prophylaxis Discharge Plan: Home Plan to discharge in: Greater than 2 days - Advance Directives Does patient have a Living Will: No Does patient have a Durable POA for Healthcare: No - Code Status/Comfort Care Code Status Assessed: Yes Code Status: Full Code Critical Care: No Time Spent Managing PTS Care (In Minutes): 35
[2020-07-05] MEDS: ENOXAPARIN 40 MG/0.4 ML SQ SCH (08:28)
[2020-07-05] MEDS: levETIRAcetam 750 MG in NA CHLORIDE 0.9% 100 ML IV SCH ×2 (08:29→21:00)
[2020-07-05] MEDS: CEFTRIAXONE/SWI 2gm 2 GM/20 ML SYR IV SCH ×2 (08:29→21:00)
[2020-07-05] MEDS ORDERED: NA CHLORIDE 0.9% 1,000 ML ONE ×2 (08:44→21:14)
[2020-07-05] MEDS ORDERED: ENOXAPARIN 40 MG/0.4 ML SQ ONE (08:44)
[2020-07-05] MEDS ORDERED: ACETAMINOPHEN 650MG/RECT SUPP PR ONE ×2 (11:26→11:57)
[2020-07-05] MEDS ORDERED: ACETAMINOPHEN 325 MG/SUPP PR ONE ×2 (11:57→12:00)
[2020-07-05 16:47] VITALS: O2SAT 92
[2020-07-05] MEDS ORDERED: CEFTRIAXONE/SWI 1gm 0 GM/0 ML SYR ONE (21:07)
[2020-07-05 21:32] VITALS: BP 151/57; TEMP 98.2
--- NOTE | 2020-07-21 16:06 | P.DS ---
Discharge Date: 07/05/20 Primary Care Provider: none Disposition: TRANSFER TO [facility] Discharge Condition: GOOD Reason for Admission: Aseptic meningitis Consultations: Neurology - Problems (1) Viral encephalitis Status: Acute Brief History of Present Illness: Patient is a 29-year-old female came to the hospital with altered mentation. Patient was recently diagnosed with COVID-19. Patient presented with an encephalitis symptoms. Patient had a lumbar puncture with opening pressure is greater than 40 mm of mercury. Patient is labs on her spinal fluid revealed elevated white blood cell count. Patient will be admitted to the hospital for further evaluation. Hospital Course: patient with encephalitis and needs to be transferred for tertiary care. Will transfer patient to a tertiary care facility. Vital Signs/Physical Exam: Temp Pulse Resp BP Pulse Ox 98.2 F 77 18 151/57 H 95 07/05/20 21:00 07/05/20 21:00 07/05/20 21:00 07/05/20 21:00 07/05/20 21:00 General: Confused, Other (Patient not really responding appropriately) Laboratory Data at Discharge: WBC 11.50 K/uL (4.3-10.9) H D 07/05/20 05:17 Hgb 11.8 g/dL (12.0-15.0) L 07/05/20 05:17 Hct 36.0 % (36.0-45.0) 07/05/20 05:17 Plt Count 302 K/uL (152-406) 07/05/20 05:17 PT 13.3 SECONDS (9.5-12.5) H 07/03/20 15:15 INR 1.15 07/03/20 15:15 APTT 24.7 SECONDS (24.3-36.9) 07/03/20 15:15 Sodium 142 mmol/L (136-145) 07/05/20 05:17 Potassium 4.0 mmol/L (3.5-5.1) 07/05/20 05:17 BUN 9 mg/dL (7-18) 07/05/20 05:17 Creatinine 0.48 mg/dL (0.55-1.3) L 07/05/20 05:17 Glucose 116 mg/dL (74-106) H 07/05/20 05:17 Phosphorus 2.7 mg/dL (2.5-4.9) D 07/05/20 05:17 Magnesium 2.2 mg/dL (1.8-2.4) 07/05/20 05:17 Total Bilirubin 0.3 mg/dL (0.2-1.0) 07/05/20 05:17 AST 57 U/L (15-37) H 07/05/20 05:17 ALT 31 U/L (12-78) 07/05/20 05:17 Alkaline Phosphatase 65 U/L (45-117) 07/05/20 05:17 Home Medications: NK [No Home Meds] 07/04/20 Physician Discharge Instructions: Transfer to [facility] Diet: Regular Activity: Fall precautions Followup: Unknown,U [Primary Care Provider] - Time spent managing pt's care (in minutes): 35
== END 2020-07-05 21:33 | disposition short-term general hospital (02) | DRG 97 ==
LOC: ER 14:06 → ERHOLD 21:10
PROVIDERS: ADMIT Hospitalist; ATTEND Hospitalist
PROC: 009U3ZX Drainage of Spinal Canal, Percutaneous Approach, Diagnostic (ICD-10-PCS; principal; 2020-07-03)
DX: A86 Unspecified viral encephalitis (principal); U07.1 COVID-19; Z68.42 Body mass index [BMI] 45.0-49.9, adult; E66.01 Morbid (severe) obesity due to excess calories; Z79.899 Other long term (current) drug therapy; Z56.0 Unemployment, unspecified; Z90.49 Acquired absence of other specified parts of digestive tract
CPT/HCPCS: 36415; 51702; 62270; 70450; 70553; 71275; 80048; 80053; 80076; 80202; 80307; 80320; 80329; 81003; 81015; 81025; 82945; 83605; 83735; 84100; 84145; 84157; 84439; 84443; 84484; 85025; 85610; 85730; 86403; 87040; 87070; 87086; 87088; 89050; 93005; 99285; A9577; J0696; J1100; J1200; J1650; J1953; J2405; J3360; J3370; J7030; J7040; J7050; Q9967; U0003